=== PATIENT | male | born 1970 | race African-American/Black ===

== ENCOUNTER 2020-06-25 12:22 | Inpatient (IN) | payer OTHER ==
[2020-06-25 14:53] VITALS: BMI 30.3
[2020-06-25] MEDS ORDERED: MAGNESIUM CITRATE 300 ML BOTTLE PO PRN (16:27)
[2020-06-25] MEDS ORDERED: NICOTINE POLACRILEX 4 MG GUM BUC PRN (16:27)
[2020-06-25] MEDS ORDERED: BISMUTH SUBSALICYLATE 524 MG/30 ML UD PO PRN (16:27)
[2020-06-25] MEDS ORDERED: chlordiazePOXIDE HCL 25 MG CAPSULE PO PRN (16:27)
[2020-06-25] MEDS ORDERED: hydrOXYzine PAMOATE 25 MG CAPSULE (FP) PO PRN (16:27)
[2020-06-25] MEDS ORDERED: ACETAMINOPHEN 325 MG TABLET (FP) PO PRN ×2 (16:27)
[2020-06-25] MEDS ORDERED: IBUPROFEN 400 MG TABLET (FP) PO PRN (16:27)
[2020-06-25] MEDS ORDERED: MAG HYDROX/AL HYDROX/SIMETH 30 ML UNIT-DOSE CUP PO PRN (16:27)
[2020-06-25] MEDS ORDERED: ONDANSETRON *ODT* 4 MG TABLET SL PRN (16:27)
[2020-06-25] MEDS ORDERED: MAGNESIUM HYDROX 2400MG/30ML ORAL SUSPENSION 30 ML CUP PO PRN (16:27)
[2020-06-25] MEDS ORDERED: METHOCARBAMOL 500 MG TABLET PO PRN (16:27)
[2020-06-25] MEDS ORDERED: MENTHOL/PHENOL 1 EACH UD MM PRN (16:27)
[2020-06-25] MEDS ORDERED: HYDROCORTISONE 0.5% TOPICAL CREAM 30 GM TUBE TP PRN (16:30)
[2020-06-25] MEDS ORDERED: ALBUTEROL SO4 HFA INHALER IH PRN (16:36)
[2020-06-25] MEDS: THIAMINE HCL 100 MG TABLET (FP) PO SCH (22:39)
[2020-06-25] MEDS: chlordiazePOXIDE HCL 25 MG CAPSULE PO SCH (22:40)
[2020-06-25] MEDS: MELATONIN 5 MG TABLETS PO SCH (22:40)
[2020-06-26] MEDS: chlordiazePOXIDE HCL 25 MG CAPSULE PO SCH ×2 (06:06→10:54)
[2020-06-26] MEDS: ALBUTEROL SO4 HFA INHALER IH PRN ×2 (06:40→10:57)
[2020-06-26] MEDS ORDERED: ALBUTEROL SO4 HFA INHALER IH PRN (09:16)
[2020-06-26] MEDS: NICOTINE 21 MG/24 HOURS TOPICAL PATCH TD SCH (10:53)
[2020-06-26] MEDS: PRENATAL VITAMINS W/ FOLIC ACID TABLET (FP) PO SCH (10:53)
[2020-06-26 11:51] LABS: HEMATOCRIT 40.2 % (35.4-49); HEMOGLOBIN 13.7 GM/dL (11.7-16.9); MCH 28.8 pg (25.7-33.7); MEAN CELL VOLUME 84.7 fl (80-96); MEAN PLT VOLUME 8.7 fl (7.5-11.1); PLATELET COUNT 261 K/MM3 (134-434); RBC 4.75 M/mm3 (4.00-5.60); RDW 15.6 % (11.9-15.9); WHITE BLOOD COUNT 4.9 K/mm3 (4.0-10.0)
[2020-06-26 11:55] LABS: ALBUMIN 3.7 g/dl (3.4-5.0); BLOOD UREA NITROGEN 13.7 mg/dL (7-18)
[2020-06-26 11:56] LABS: BILIRUBIN,TOTAL 0.4 mg/dL (0.2-1); TOT PROT 6.7 g/dl (6.4-8.2)
[2020-06-26 11:58] LABS: CREATININE 0.9 mg/dL (0.55-1.3)
[2020-06-26 11:59] LABS: CALCIUM 8.5 mg/dL (8.5-10.1)
[2020-06-26] MEDS ORDERED: POTASSIUM CHLORIDE ORAL LIQUID 20 MEQ/15 ML PO ONE (14:43)
[2020-06-26] MEDS ORDERED: LORazepam 1 MG TABLET PO PRN (14:45)
[2020-06-26] MEDS ORDERED: LORazepam 1 MG TABLET PO ONE (15:26)
[2020-06-26] MEDS: amLODIPine BESYLATE 10 MG TABLET (FP) PO SCH (15:34)
[2020-06-26] MEDS: LORazepam 2 MG TABLET PO SCH ×2 (18:08→22:25)
[2020-06-26] MEDS: MELATONIN 5 MG TABLETS PO SCH (22:26)
[2020-06-26] MEDS: THIAMINE HCL 100 MG TABLET (FP) PO SCH (22:27)
[2020-06-27] MEDS ORDERED: chlordiazePOXIDE HCL 25 MG CAPSULE PO SCH (05:00)
[2020-06-27] MEDS: LORazepam 2 MG TABLET PO SCH ×4 (05:32→22:39)
[2020-06-27] MEDS: ALBUTEROL SO4 HFA INHALER IH PRN ×2 (05:36→22:42)
[2020-06-27] MEDS: NICOTINE 21 MG/24 HOURS TOPICAL PATCH TD SCH (11:15)
[2020-06-27] MEDS: PRENATAL VITAMINS W/ FOLIC ACID TABLET (FP) PO SCH (11:15)
[2020-06-27] MEDS: amLODIPine BESYLATE 10 MG TABLET (FP) PO SCH (11:16)
[2020-06-27] MEDS: MELATONIN 5 MG TABLETS PO SCH (22:39)
[2020-06-27] MEDS: THIAMINE HCL 100 MG TABLET (FP) PO SCH (22:40)
[2020-06-27] MEDS: POTASSIUM CHLORIDE ORAL LIQUID 20 MEQ/15 ML PO SCH ×2 (22:40→22:41)
[2020-06-28] MEDS ORDERED: chlordiazePOXIDE HCL 10 MG CAPSULE PO PRN
[2020-06-28] MEDS ORDERED: chlordiazePOXIDE HCL 10 MG CAPSULE PO SCH (05:00)
[2020-06-28] MEDS: LORazepam 1 MG TABLET PO SCH ×4 (05:40→22:24)
[2020-06-28] MEDS: amLODIPine BESYLATE 10 MG TABLET (FP) PO SCH (10:44)
[2020-06-28] MEDS: NICOTINE 21 MG/24 HOURS TOPICAL PATCH TD SCH (10:44)
[2020-06-28] MEDS: POTASSIUM CHLORIDE ORAL LIQUID 20 MEQ/15 ML PO SCH ×2 (10:44→22:24)
[2020-06-28] MEDS: PRENATAL VITAMINS W/ FOLIC ACID TABLET (FP) PO SCH (10:45)
[2020-06-28] MEDS: THIAMINE HCL 100 MG TABLET (FP) PO SCH (22:24)
[2020-06-28] MEDS: MELATONIN 5 MG TABLETS PO SCH (22:25)
[2020-06-29] MEDS ORDERED: LORazepam 0.5 MG TABLET PO PRN
[2020-06-29] MEDS ORDERED: chlordiazePOXIDE HCL 10 MG CAPSULE PO SCH (05:00)
[2020-06-29] MEDS: LORazepam 0.5 MG TABLET PO SCH ×4 (05:36→22:21)
[2020-06-29] MEDS: NICOTINE 21 MG/24 HOURS TOPICAL PATCH TD SCH (10:50)
[2020-06-29] MEDS: amLODIPine BESYLATE 10 MG TABLET (FP) PO SCH (10:51)
[2020-06-29] MEDS: PRENATAL VITAMINS W/ FOLIC ACID TABLET (FP) PO SCH (10:51)
[2020-06-29] MEDS: THIAMINE HCL 100 MG TABLET (FP) PO SCH (22:21)
[2020-06-29] MEDS: MELATONIN 5 MG TABLETS PO SCH (22:22)
[2020-06-29] MEDS: ALBUTEROL SO4 HFA INHALER IH PRN (22:23)
[2020-06-30] MEDS ORDERED: LORazepam 0.5 MG TABLET PO ONE (05:00)
[2020-06-30] MEDS ORDERED: chlordiazePOXIDE HCL 10 MG CAPSULE PO ONE (05:00)
[2020-06-30 06:05] LABS: SARS-CoV-2 NAA Not Detected (Not Detected)
[2020-06-30] MEDS: PRENATAL VITAMINS W/ FOLIC ACID TABLET (FP) PO SCH (09:38)
[2020-06-30] MEDS: NICOTINE 21 MG/24 HOURS TOPICAL PATCH TD SCH (09:38)
[2020-06-30] MEDS: amLODIPine BESYLATE 10 MG TABLET (FP) PO SCH (09:38)
[2020-06-30 10:02] VITALS: BP 136/77; PULSE 101; TEMP 97.1
== END 2020-06-30 12:32 | disposition home or self-care (01) | DRG 774 ==
LOC: YASAS 12:22 → Y6N 17:04
PROVIDERS: ADMIT Allergy & Immunology; ATTEND Allergy & Immunology
PROC: HZ2ZZZZ Detoxification Services for Substance Abuse Treatment (ICD-10-PCS; principal; 2020-06-25)
DX: F10.230 Alcohol dependence with withdrawal, uncomplicated (principal); F14.20 Cocaine dependence, uncomplicated; F12.10 Cannabis abuse, uncomplicated; F17.210 Nicotine dependence, cigarettes, uncomplicated; E87.6 Hypokalemia; I10 Essential (primary) hypertension; J45.909 Unspecified asthma, uncomplicated; L30.9 Dermatitis, unspecified
CPT/HCPCS: 36415; 80053; 82947; 82962; 83036; 85027; 86780; 93005; 93010; C9803; Q0162; U0003; U0005

== ENCOUNTER 2020-06-30 12:42 | Inpatient (IN) | payer OTHER ==
[2020-06-30] MEDS ORDERED: MENTHOL/PHENOL 1 EACH UD MM PRN (14:36)
[2020-06-30] MEDS ORDERED: LOPERAMIDE HCL 2 MG CAPSULE PO PRN (14:36)
[2020-06-30] MEDS ORDERED: guaiFENesin 200 MG/10 ML 10 ML UNIT-DOSE CUPS PO PRN (14:36)
[2020-06-30] MEDS ORDERED: MAGNESIUM HYDROX 2400MG/30ML ORAL SUSPENSION 30 ML CUP PO PRN (14:36)
[2020-06-30] MEDS ORDERED: MAGNESIUM CITRATE 300 ML BOTTLE PO PRN (14:36)
[2020-06-30] MEDS ORDERED: IBUPROFEN 400 MG TABLET (FP) PO PRN (14:36)
[2020-06-30] MEDS ORDERED: P-EPHED 60MG/TRIPROLIDI 2.5MG TABLET PO PRN (14:36)
[2020-06-30] MEDS ORDERED: ACETAMINOPHEN 325 MG TABLET (FP) PO PRN (14:36)
[2020-06-30] MEDS ORDERED: NICOTINE POLACRILEX 2 MG GUM BUC PRN (14:36)
[2020-06-30] MEDS ORDERED: ALBUTEROL SO4 HFA INHALER IH PRN (14:39)
[2020-06-30] MEDS: hydrOXYzine PAMOATE 25 MG CAPSULE (FP) PO PRN (21:11)
[2020-06-30] MEDS: MELATONIN 5 MG TABLETS PO SCH (21:11)
[2020-06-30] MEDS: THIAMINE HCL 100 MG TABLET (FP) PO SCH (21:11)
[2020-07-01] MEDS: ALBUTEROL SO4 HFA INHALER IH PRN (09:14)
[2020-07-01] MEDS: PRENATAL VITAMINS W/ FOLIC ACID TABLET (FP) PO SCH (09:42)
[2020-07-01] MEDS: amLODIPine BESYLATE 10 MG TABLET (FP) PO SCH (09:43)
[2020-07-01] MEDS: NICOTINE 7 MG/24 HOURS TOPICAL PATCH TD SCH (09:43)
[2020-07-01] MEDS ORDERED: NICOTINE 14 MG/24 HOURS TOPICAL PATCH TD SCH (10:00)
[2020-07-01] MEDS: THIAMINE HCL 100 MG TABLET (FP) PO SCH (21:53)
[2020-07-01] MEDS: hydrOXYzine PAMOATE 25 MG CAPSULE (FP) PO PRN (21:53)
[2020-07-01] MEDS: MELATONIN 5 MG TABLETS PO SCH (21:53)
[2020-07-02] MEDS: NICOTINE 7 MG/24 HOURS TOPICAL PATCH TD SCH (09:35)
[2020-07-02] MEDS: amLODIPine BESYLATE 10 MG TABLET (FP) PO SCH (09:36)
[2020-07-02] MEDS: PRENATAL VITAMINS W/ FOLIC ACID TABLET (FP) PO SCH (09:36)
[2020-07-02] MEDS: COLLOIDAL OATMEAL 1 BAR EACH TP PRN (11:04)
[2020-07-02] MEDS: HYDROCORTISONE 1% TOPICAL CREAM 30 GM TUBE TP PRN (11:05)
[2020-07-02] MEDS: hydrOXYzine PAMOATE 25 MG CAPSULE (FP) PO PRN (21:08)
[2020-07-02] MEDS: THIAMINE HCL 100 MG TABLET (FP) PO SCH (21:08)
[2020-07-02] MEDS: MELATONIN 5 MG TABLETS PO SCH (21:08)
[2020-07-03] MEDS: ALBUTEROL SO4 HFA INHALER IH PRN (09:05)
[2020-07-03] MEDS: PRENATAL VITAMINS W/ FOLIC ACID TABLET (FP) PO SCH (09:44)
[2020-07-03] MEDS: amLODIPine BESYLATE 10 MG TABLET (FP) PO SCH (09:44)
[2020-07-03] MEDS: NICOTINE 7 MG/24 HOURS TOPICAL PATCH TD SCH (09:44)
[2020-07-03] MEDS: MELATONIN 5 MG TABLETS PO SCH (21:05)
[2020-07-03] MEDS: THIAMINE HCL 100 MG TABLET (FP) PO SCH (21:05)
[2020-07-03] MEDS: hydrOXYzine PAMOATE 25 MG CAPSULE (FP) PO PRN (21:06)
[2020-07-04 06:07] LABS: SARS-CoV-2 NAA Not Detected (Not Detected)
[2020-07-04] MEDS: PRENATAL VITAMINS W/ FOLIC ACID TABLET (FP) PO SCH (09:32)
[2020-07-04] MEDS: NICOTINE 7 MG/24 HOURS TOPICAL PATCH TD SCH (09:32)
[2020-07-04] MEDS: hydrOXYzine PAMOATE 25 MG CAPSULE (FP) PO PRN (09:33)
[2020-07-04] MEDS: amLODIPine BESYLATE 10 MG TABLET (FP) PO SCH (09:33)
[2020-07-04] MEDS: NICOTINE 14 MG/24 HOURS TOPICAL PATCH TD SCH (11:54)
[2020-07-04] MEDS: THIAMINE HCL 100 MG TABLET (FP) PO SCH (21:58)
[2020-07-04] MEDS: MELATONIN 5 MG TABLETS PO SCH (21:58)
[2020-07-05] MEDS: PRENATAL VITAMINS W/ FOLIC ACID TABLET (FP) PO SCH (09:34)
[2020-07-05] MEDS: amLODIPine BESYLATE 10 MG TABLET (FP) PO SCH (09:34)
[2020-07-05] MEDS: NICOTINE 14 MG/24 HOURS TOPICAL PATCH TD SCH (09:34)
[2020-07-05] MEDS: hydrOXYzine PAMOATE 25 MG CAPSULE (FP) PO PRN ×2 (09:34→21:04)
[2020-07-05] MEDS: MAG HYDROX/AL HYDROX/SIMETH 30 ML UNIT-DOSE CUP PO PRN (20:15)
[2020-07-05] MEDS: ALBUTEROL SO4 HFA INHALER IH PRN (21:03)
[2020-07-05] MEDS: MELATONIN 5 MG TABLETS PO SCH (21:04)
[2020-07-05] MEDS: THIAMINE HCL 100 MG TABLET (FP) PO SCH (21:04)
[2020-07-06] MEDS: PRENATAL VITAMINS W/ FOLIC ACID TABLET (FP) PO SCH (10:11)
[2020-07-06] MEDS: hydrOXYzine PAMOATE 25 MG CAPSULE (FP) PO PRN ×2 (10:11→21:54)
[2020-07-06] MEDS: amLODIPine BESYLATE 10 MG TABLET (FP) PO SCH (10:11)
[2020-07-06] MEDS: NICOTINE 14 MG/24 HOURS TOPICAL PATCH TD SCH (10:12)
[2020-07-06] MEDS: HYDROCORTISONE 1% TOPICAL CREAM 30 GM TUBE TP PRN (14:35)
[2020-07-06] MEDS: MELATONIN 5 MG TABLETS PO SCH (21:54)
[2020-07-06] MEDS: THIAMINE HCL 100 MG TABLET (FP) PO SCH (21:54)
[2020-07-07] MEDS: amLODIPine BESYLATE 10 MG TABLET (FP) PO SCH (09:31)
[2020-07-07] MEDS: NICOTINE 14 MG/24 HOURS TOPICAL PATCH TD SCH (09:31)
[2020-07-07] MEDS: PRENATAL VITAMINS W/ FOLIC ACID TABLET (FP) PO SCH (09:31)
[2020-07-07] MEDS ORDERED: PT OWN MED DRAWER 7, Y5N ONE (19:01)
[2020-07-07] MEDS: ALBUTEROL SO4 HFA INHALER IH PRN (19:02)
[2020-07-07] MEDS: hydrOXYzine PAMOATE 25 MG CAPSULE (FP) PO PRN (21:04)
[2020-07-07] MEDS: THIAMINE HCL 100 MG TABLET (FP) PO SCH (21:04)
[2020-07-07] MEDS: MELATONIN 5 MG TABLETS PO SCH (21:04)
[2020-07-08] MEDS: NICOTINE 14 MG/24 HOURS TOPICAL PATCH TD SCH (09:31)
[2020-07-08] MEDS: PRENATAL VITAMINS W/ FOLIC ACID TABLET (FP) PO SCH (09:31)
[2020-07-08] MEDS: amLODIPine BESYLATE 10 MG TABLET (FP) PO SCH (09:31)
[2020-07-08] MEDS: THIAMINE HCL 100 MG TABLET (FP) PO SCH (22:00)
[2020-07-08] MEDS: MELATONIN 5 MG TABLETS PO SCH (22:00)
[2020-07-08] MEDS: hydrOXYzine PAMOATE 25 MG CAPSULE (FP) PO PRN (22:02)
[2020-07-09] MEDS: ALBUTEROL SO4 HFA INHALER IH PRN (08:34)
[2020-07-09] MEDS: MAG HYDROX/AL HYDROX/SIMETH 30 ML UNIT-DOSE CUP PO PRN (09:15)
[2020-07-09] MEDS ORDERED: COVID-19 VAC,AD26(JANSSEN)/PF 0.5 ML IM ONE (10:00)
[2020-07-09] MEDS: amLODIPine BESYLATE 10 MG TABLET (FP) PO SCH (10:12)
[2020-07-09] MEDS: NICOTINE 14 MG/24 HOURS TOPICAL PATCH TD SCH (10:12)
[2020-07-09] MEDS: PRENATAL VITAMINS W/ FOLIC ACID TABLET (FP) PO SCH (10:12)
[2020-07-09] MEDS: PANTOPRAZOLE 40 MG TABLET PO SCH (12:05)
[2020-07-09] MEDS: THIAMINE HCL 100 MG TABLET (FP) PO SCH (21:04)
[2020-07-09] MEDS: MELATONIN 5 MG TABLETS PO SCH (21:04)
[2020-07-09] MEDS: hydrOXYzine PAMOATE 25 MG CAPSULE (FP) PO PRN (21:05)
[2020-07-10] MEDS: ALBUTEROL SO4 HFA INHALER IH PRN ×2 (07:45→19:31)
[2020-07-10] MEDS ORDERED: PT OWN MED DRAWER 7, Y5N ONE (07:45)
[2020-07-10] MEDS: PRENATAL VITAMINS W/ FOLIC ACID TABLET (FP) PO SCH (09:28)
[2020-07-10] MEDS: NICOTINE 14 MG/24 HOURS TOPICAL PATCH TD SCH (09:29)
[2020-07-10] MEDS: amLODIPine BESYLATE 10 MG TABLET (FP) PO SCH (09:29)
[2020-07-10] MEDS: PANTOPRAZOLE 40 MG TABLET PO SCH (09:29)
[2020-07-10] MEDS: THIAMINE HCL 100 MG TABLET (FP) PO SCH (22:09)
[2020-07-10] MEDS: hydrOXYzine PAMOATE 25 MG CAPSULE (FP) PO PRN (22:09)
[2020-07-10] MEDS: MELATONIN 5 MG TABLETS PO SCH (22:09)
[2020-07-11] MEDS: NICOTINE 14 MG/24 HOURS TOPICAL PATCH TD SCH (09:29)
[2020-07-11] MEDS: PRENATAL VITAMINS W/ FOLIC ACID TABLET (FP) PO SCH (09:29)
[2020-07-11] MEDS: amLODIPine BESYLATE 10 MG TABLET (FP) PO SCH (09:30)
[2020-07-11] MEDS: PANTOPRAZOLE 40 MG TABLET PO SCH (09:30)
[2020-07-11] MEDS: MELATONIN 5 MG TABLETS PO SCH (21:06)
[2020-07-11] MEDS: THIAMINE HCL 100 MG TABLET (FP) PO SCH (21:06)
[2020-07-11] MEDS: hydrOXYzine PAMOATE 25 MG CAPSULE (FP) PO PRN (21:06)
[2020-07-12] MEDS: PRENATAL VITAMINS W/ FOLIC ACID TABLET (FP) PO SCH (09:30)
[2020-07-12] MEDS: hydrOXYzine PAMOATE 25 MG CAPSULE (FP) PO PRN ×2 (09:30→21:58)
[2020-07-12] MEDS: PANTOPRAZOLE 40 MG TABLET PO SCH (09:30)
[2020-07-12] MEDS: amLODIPine BESYLATE 10 MG TABLET (FP) PO SCH (09:30)
[2020-07-12] MEDS: NICOTINE 14 MG/24 HOURS TOPICAL PATCH TD SCH (09:31)
[2020-07-12] MEDS: HYDROCORTISONE 1% TOPICAL CREAM 30 GM TUBE TP PRN (11:45)
[2020-07-12] MEDS: THIAMINE HCL 100 MG TABLET (FP) PO SCH (21:58)
[2020-07-12] MEDS: MELATONIN 5 MG TABLETS PO SCH (21:58)
[2020-07-13] MEDS: amLODIPine BESYLATE 10 MG TABLET (FP) PO SCH (09:26)
[2020-07-13] MEDS: PRENATAL VITAMINS W/ FOLIC ACID TABLET (FP) PO SCH (09:26)
[2020-07-13] MEDS: PANTOPRAZOLE 40 MG TABLET PO SCH (09:26)
[2020-07-13] MEDS: NICOTINE 14 MG/24 HOURS TOPICAL PATCH TD SCH (09:27)
[2020-07-13] MEDS: hydrOXYzine PAMOATE 25 MG CAPSULE (FP) PO PRN ×2 (17:23→22:35)
[2020-07-13] MEDS: THIAMINE HCL 100 MG TABLET (FP) PO SCH (21:04)
[2020-07-13] MEDS: MELATONIN 5 MG TABLETS PO SCH (21:04)
[2020-07-14] MEDS: PRENATAL VITAMINS W/ FOLIC ACID TABLET (FP) PO SCH (09:55)
[2020-07-14] MEDS: amLODIPine BESYLATE 10 MG TABLET (FP) PO SCH (09:55)
[2020-07-14] MEDS: PANTOPRAZOLE 40 MG TABLET PO SCH (09:55)
[2020-07-14] MEDS: NICOTINE 14 MG/24 HOURS TOPICAL PATCH TD SCH (09:56)
[2020-07-14] MEDS: hydrOXYzine PAMOATE 25 MG CAPSULE (FP) PO PRN ×2 (09:57→21:54)
[2020-07-14] MEDS: THIAMINE HCL 100 MG TABLET (FP) PO SCH (21:54)
[2020-07-14] MEDS: MELATONIN 5 MG TABLETS PO SCH (21:54)
[2020-07-15] MEDS: PRENATAL VITAMINS W/ FOLIC ACID TABLET (FP) PO SCH (09:27)
[2020-07-15] MEDS: NICOTINE 14 MG/24 HOURS TOPICAL PATCH TD SCH (09:28)
[2020-07-15] MEDS: PANTOPRAZOLE 40 MG TABLET PO SCH (09:28)
[2020-07-15] MEDS ORDERED: LISINOPRIL 20 MG TABLET PO ONE (11:45)
[2020-07-15] MEDS: hydrOXYzine PAMOATE 25 MG CAPSULE (FP) PO PRN (21:11)
[2020-07-15] MEDS: MELATONIN 5 MG TABLETS PO SCH (21:11)
[2020-07-15] MEDS: THIAMINE HCL 100 MG TABLET (FP) PO SCH (21:11)
[2020-07-16] MEDS: PRENATAL VITAMINS W/ FOLIC ACID TABLET (FP) PO SCH (09:34)
[2020-07-16] MEDS: NICOTINE 14 MG/24 HOURS TOPICAL PATCH TD SCH (09:35)
[2020-07-16] MEDS: PANTOPRAZOLE 40 MG TABLET PO SCH (09:35)
[2020-07-16] MEDS: THIAMINE HCL 100 MG TABLET (FP) PO SCH (21:52)
[2020-07-16] MEDS: hydrOXYzine PAMOATE 25 MG CAPSULE (FP) PO PRN (21:52)
[2020-07-16] MEDS: MELATONIN 5 MG TABLETS PO SCH (21:53)
[2020-07-17] MEDS ORDERED: PT OWN MED DRAWER 7, Y5N ONE (08:47)
[2020-07-17] MEDS: HYDROCHLOROTHIAZIDE 12.5 MG CAPSULE (FP) PO SCH (09:32)
[2020-07-17] MEDS: PANTOPRAZOLE 40 MG TABLET PO SCH (09:32)
[2020-07-17] MEDS: NICOTINE 14 MG/24 HOURS TOPICAL PATCH TD SCH (09:32)
[2020-07-17] MEDS: PRENATAL VITAMINS W/ FOLIC ACID TABLET (FP) PO SCH (09:32)
[2020-07-17] MEDS: ERGOCALCIFEROL (VIT D2) 50,000 UNIT (1.25 MG) CAPSULE PO SCH (10:03)
[2020-07-17] MEDS: LISINOPRIL 10 MG TABLET PO SCH (13:44)
[2020-07-17] MEDS: hydrOXYzine PAMOATE 25 MG CAPSULE (FP) PO PRN (21:37)
[2020-07-17] MEDS: MELATONIN 5 MG TABLETS PO SCH (21:37)
[2020-07-17] MEDS: THIAMINE HCL 100 MG TABLET (FP) PO SCH (21:37)
[2020-07-17] MEDS: ATORVASTATIN CA 40 MG TABLET (FP) PO SCH (21:39)
[2020-07-18] MEDS ORDERED: PT OWN MED DRAWER 7, Y5N ONE (08:14)
[2020-07-18] MEDS: PANTOPRAZOLE 40 MG TABLET PO SCH (09:26)
[2020-07-18] MEDS: PRENATAL VITAMINS W/ FOLIC ACID TABLET (FP) PO SCH (09:26)
[2020-07-18] MEDS: HYDROCHLOROTHIAZIDE 12.5 MG CAPSULE (FP) PO SCH (09:27)
[2020-07-18] MEDS: LISINOPRIL 10 MG TABLET PO SCH (09:27)
[2020-07-18] MEDS: NICOTINE 14 MG/24 HOURS TOPICAL PATCH TD SCH (09:27)
[2020-07-18] MEDS: COLLOIDAL OATMEAL 1 BAR EACH TP PRN (09:29)
[2020-07-18] MEDS: THIAMINE HCL 100 MG TABLET (FP) PO SCH (21:04)
[2020-07-18] MEDS: hydrOXYzine PAMOATE 25 MG CAPSULE (FP) PO PRN (21:04)
[2020-07-18] MEDS: MELATONIN 5 MG TABLETS PO SCH (21:04)
[2020-07-18] MEDS: ATORVASTATIN CA 40 MG TABLET (FP) PO SCH (21:04)
[2020-07-19] MEDS ORDERED: PT OWN MED DRAWER 7, Y5N ONE ×2 (08:28→16:40)
[2020-07-19] MEDS: PRENATAL VITAMINS W/ FOLIC ACID TABLET (FP) PO SCH (09:35)
[2020-07-19] MEDS: PANTOPRAZOLE 40 MG TABLET PO SCH (09:35)
[2020-07-19] MEDS: LISINOPRIL 10 MG TABLET PO SCH (09:35)
[2020-07-19] MEDS: NICOTINE 14 MG/24 HOURS TOPICAL PATCH TD SCH (09:36)
[2020-07-19] MEDS: HYDROCHLOROTHIAZIDE 12.5 MG CAPSULE (FP) PO SCH (11:07)
[2020-07-19] MEDS: ALBUTEROL SO4 HFA INHALER IH PRN (18:33)
[2020-07-19] MEDS: ATORVASTATIN CA 40 MG TABLET (FP) PO SCH (21:48)
[2020-07-19] MEDS: THIAMINE HCL 100 MG TABLET (FP) PO SCH (21:48)
[2020-07-19] MEDS: hydrOXYzine PAMOATE 25 MG CAPSULE (FP) PO PRN (21:49)
[2020-07-19] MEDS: MELATONIN 5 MG TABLETS PO SCH (21:49)
[2020-07-20] MEDS ORDERED: PT OWN MED DRAWER 7, Y5N ONE (07:29)
[2020-07-20] MEDS: LISINOPRIL 10 MG TABLET PO SCH (09:39)
[2020-07-20] MEDS: NICOTINE 14 MG/24 HOURS TOPICAL PATCH TD SCH (09:39)
[2020-07-20] MEDS: PRENATAL VITAMINS W/ FOLIC ACID TABLET (FP) PO SCH (09:39)
[2020-07-20] MEDS: PANTOPRAZOLE 40 MG TABLET PO SCH (09:39)
[2020-07-20] MEDS: HYDROCHLOROTHIAZIDE 12.5 MG CAPSULE (FP) PO SCH (09:39)
[2020-07-20] MEDS: MELATONIN 5 MG TABLETS PO SCH (21:10)
[2020-07-20] MEDS: THIAMINE HCL 100 MG TABLET (FP) PO SCH (21:10)
[2020-07-20] MEDS: hydrOXYzine PAMOATE 25 MG CAPSULE (FP) PO PRN (21:10)
[2020-07-20] MEDS: ATORVASTATIN CA 40 MG TABLET (FP) PO SCH (21:10)
[2020-07-20] MEDS: ALBUTEROL SO4 HFA INHALER IH PRN (23:06)
[2020-07-21] MEDS: PANTOPRAZOLE 40 MG TABLET PO SCH (09:35)
[2020-07-21] MEDS: PRENATAL VITAMINS W/ FOLIC ACID TABLET (FP) PO SCH (09:35)
[2020-07-21] MEDS: HYDROCHLOROTHIAZIDE 12.5 MG CAPSULE (FP) PO SCH (09:36)
[2020-07-21] MEDS: NICOTINE 14 MG/24 HOURS TOPICAL PATCH TD SCH (09:36)
[2020-07-21] MEDS: LISINOPRIL 10 MG TABLET PO SCH (09:36)
[2020-07-21] MEDS: ALBUTEROL SO4 HFA INHALER IH PRN (18:47)
[2020-07-21] MEDS: ATORVASTATIN CA 40 MG TABLET (FP) PO SCH (21:27)
[2020-07-21] MEDS: MELATONIN 5 MG TABLETS PO SCH (21:27)
[2020-07-21] MEDS: THIAMINE HCL 100 MG TABLET (FP) PO SCH (21:27)
[2020-07-21] MEDS: hydrOXYzine PAMOATE 25 MG CAPSULE (FP) PO PRN (21:27)
[2020-07-21] MEDS ORDERED: PT OWN MED DRAWER 7, Y5N ONE (21:32)
[2020-07-21] MEDS: HYDROCORTISONE 1% TOPICAL CREAM 30 GM TUBE TP PRN (21:32)
[2020-07-22] MEDS: PRENATAL VITAMINS W/ FOLIC ACID TABLET (FP) PO SCH (09:38)
[2020-07-22] MEDS: LISINOPRIL 10 MG TABLET PO SCH (09:39)
[2020-07-22] MEDS: PANTOPRAZOLE 40 MG TABLET PO SCH (09:39)
[2020-07-22] MEDS: HYDROCHLOROTHIAZIDE 12.5 MG CAPSULE (FP) PO SCH (09:39)
[2020-07-22] MEDS: NICOTINE 14 MG/24 HOURS TOPICAL PATCH TD SCH (09:39)
[2020-07-22] MEDS: MELATONIN 5 MG TABLETS PO SCH (21:01)
[2020-07-22] MEDS: hydrOXYzine PAMOATE 25 MG CAPSULE (FP) PO PRN (21:01)
[2020-07-22] MEDS: THIAMINE HCL 100 MG TABLET (FP) PO SCH (21:01)
[2020-07-22] MEDS: ATORVASTATIN CA 40 MG TABLET (FP) PO SCH (21:01)
[2020-07-23] MEDS: ALBUTEROL SO4 HFA INHALER IH PRN (06:51)
[2020-07-23] MEDS: LISINOPRIL 10 MG TABLET PO SCH (09:27)
[2020-07-23] MEDS: PANTOPRAZOLE 40 MG TABLET PO SCH (09:27)
[2020-07-23] MEDS: HYDROCHLOROTHIAZIDE 12.5 MG CAPSULE (FP) PO SCH (09:27)
[2020-07-23] MEDS: NICOTINE 14 MG/24 HOURS TOPICAL PATCH TD SCH (09:28)
[2020-07-23] MEDS: PRENATAL VITAMINS W/ FOLIC ACID TABLET (FP) PO SCH (09:28)
[2020-07-23] MEDS: MELATONIN 5 MG TABLETS PO SCH (21:10)
[2020-07-23] MEDS: ATORVASTATIN CA 40 MG TABLET (FP) PO SCH (21:10)
[2020-07-23] MEDS: THIAMINE HCL 100 MG TABLET (FP) PO SCH (21:10)
[2020-07-23] MEDS: hydrOXYzine PAMOATE 25 MG CAPSULE (FP) PO PRN (21:10)
[2020-07-24] MEDS: ALBUTEROL SO4 HFA INHALER IH PRN (06:05)
[2020-07-24] MEDS ORDERED: PT OWN MED DRAWER 7, Y5N ONE ×2 (08:48→09:43)
[2020-07-24] MEDS: PANTOPRAZOLE 40 MG TABLET PO SCH (09:41)
[2020-07-24] MEDS: HYDROCHLOROTHIAZIDE 12.5 MG CAPSULE (FP) PO SCH (09:41)
[2020-07-24] MEDS: NICOTINE 14 MG/24 HOURS TOPICAL PATCH TD SCH (09:41)
[2020-07-24] MEDS: PRENATAL VITAMINS W/ FOLIC ACID TABLET (FP) PO SCH (09:41)
[2020-07-24] MEDS: LISINOPRIL 10 MG TABLET PO SCH (09:41)
[2020-07-24] MEDS: ERGOCALCIFEROL (VIT D2) 50,000 UNIT (1.25 MG) CAPSULE PO SCH (09:43)
[2020-07-24] MEDS: ATORVASTATIN CA 40 MG TABLET (FP) PO SCH (21:10)
[2020-07-24] MEDS: hydrOXYzine PAMOATE 25 MG CAPSULE (FP) PO PRN (21:10)
[2020-07-24] MEDS: THIAMINE HCL 100 MG TABLET (FP) PO SCH (21:10)
[2020-07-24] MEDS: MELATONIN 5 MG TABLETS PO SCH (21:11)
[2020-07-25] MEDS: PRENATAL VITAMINS W/ FOLIC ACID TABLET (FP) PO SCH (09:25)
[2020-07-25] MEDS: HYDROCHLOROTHIAZIDE 12.5 MG CAPSULE (FP) PO SCH (09:25)
[2020-07-25] MEDS: LISINOPRIL 10 MG TABLET PO SCH (09:27)
[2020-07-25] MEDS: NICOTINE 14 MG/24 HOURS TOPICAL PATCH TD SCH (09:28)
[2020-07-25] MEDS: PANTOPRAZOLE 40 MG TABLET PO SCH (09:28)
[2020-07-25] MEDS ORDERED: PT OWN MED DRAWER 7, Y5N ONE (17:49)
[2020-07-25] MEDS: ALBUTEROL SO4 HFA INHALER IH PRN (17:49)
[2020-07-25] MEDS: ATORVASTATIN CA 40 MG TABLET (FP) PO SCH (21:58)
[2020-07-25] MEDS: THIAMINE HCL 100 MG TABLET (FP) PO SCH (21:58)
[2020-07-25] MEDS: hydrOXYzine PAMOATE 25 MG CAPSULE (FP) PO PRN (21:58)
[2020-07-25] MEDS: MELATONIN 5 MG TABLETS PO SCH (21:58)
[2020-07-26] MEDS: LISINOPRIL 10 MG TABLET PO SCH (09:26)
[2020-07-26] MEDS: PRENATAL VITAMINS W/ FOLIC ACID TABLET (FP) PO SCH (09:26)
[2020-07-26] MEDS: PANTOPRAZOLE 40 MG TABLET PO SCH (09:26)
[2020-07-26] MEDS: NICOTINE 14 MG/24 HOURS TOPICAL PATCH TD SCH (09:26)
[2020-07-26] MEDS: HYDROCHLOROTHIAZIDE 12.5 MG CAPSULE (FP) PO SCH (09:26)
[2020-07-26] MEDS: ATORVASTATIN CA 40 MG TABLET (FP) PO SCH (21:01)
[2020-07-26] MEDS: MELATONIN 5 MG TABLETS PO SCH (21:01)
[2020-07-26] MEDS: THIAMINE HCL 100 MG TABLET (FP) PO SCH (21:01)
[2020-07-26] MEDS: hydrOXYzine PAMOATE 25 MG CAPSULE (FP) PO PRN (21:02)
[2020-07-27 06:43] VITALS: TEMP 97.1
[2020-07-27] MEDS: PANTOPRAZOLE 40 MG TABLET PO SCH (09:32)
[2020-07-27] MEDS: LISINOPRIL 10 MG TABLET PO SCH (09:32)
[2020-07-27] MEDS: HYDROCHLOROTHIAZIDE 12.5 MG CAPSULE (FP) PO SCH (09:32)
[2020-07-27] MEDS: PRENATAL VITAMINS W/ FOLIC ACID TABLET (FP) PO SCH (09:33)
[2020-07-27] MEDS: NICOTINE 14 MG/24 HOURS TOPICAL PATCH TD SCH (09:33)
[2020-07-27] MEDS ORDERED: PT OWN MED DRAWER 7, Y5N ONE ×2 (11:37→21:11)
[2020-07-27] MEDS: THIAMINE HCL 100 MG TABLET (FP) PO SCH (21:09)
[2020-07-27] MEDS: MELATONIN 5 MG TABLETS PO SCH (21:09)
[2020-07-27] MEDS: ATORVASTATIN CA 40 MG TABLET (FP) PO SCH (21:09)
[2020-07-27] MEDS: hydrOXYzine PAMOATE 25 MG CAPSULE (FP) PO PRN (21:10)
[2020-07-27] MEDS: ALBUTEROL SO4 HFA INHALER IH PRN (21:11)
[2020-07-28 06:24] VITALS: BP 138/81; PULSE 83
[2020-07-28] MEDS: PRENATAL VITAMINS W/ FOLIC ACID TABLET (FP) PO SCH (09:19)
[2020-07-28] MEDS: PANTOPRAZOLE 40 MG TABLET PO SCH (09:20)
[2020-07-28] MEDS: LISINOPRIL 10 MG TABLET PO SCH (09:20)
[2020-07-28] MEDS: NICOTINE 14 MG/24 HOURS TOPICAL PATCH TD SCH (09:20)
[2020-07-28] MEDS: HYDROCHLOROTHIAZIDE 12.5 MG CAPSULE (FP) PO SCH (09:21)
== END 2020-07-28 09:50 | disposition home or self-care (01) | DRG 772 ==
LOC: YASAS 12:42 → Y5N 12:43
PROVIDERS: ADMIT Allergy & Immunology; ATTEND Allergy & Immunology
PROC: HZ42ZZZ Group Counseling for Substance Abuse Treatment, Cognitive-Behavioral (ICD-10-PCS; principal; 2020-06-30)
DX: F10.20 Alcohol dependence, uncomplicated (principal); F14.10 Cocaine abuse, uncomplicated; F12.10 Cannabis abuse, uncomplicated; F17.210 Nicotine dependence, cigarettes, uncomplicated; E78.5 Hyperlipidemia, unspecified; E55.9 Vitamin D deficiency, unspecified; I10 Essential (primary) hypertension; J45.909 Unspecified asthma, uncomplicated; L30.9 Dermatitis, unspecified; N40.0 Benign prostatic hyperplasia without lower urinary tract symptoms
CPT/HCPCS: 73000-TC-LT-FY; 73000-TC-RT-FY; C9803; U0003; U0005

== ENCOUNTER 2022-03-10 12:46 | Inpatient (IN) | payer OTHER ==
[2022-03-10 13:12] VITALS: BMI 24.2
[2022-03-10] MEDS ORDERED: NICOTINE 10 MG CARTRIDGE (INHALER) IH PRN (15:46)
[2022-03-10] MEDS ORDERED: LOPERAMIDE HCL 2 MG CAPSULE PO PRN (15:46)
[2022-03-10] MEDS ORDERED: IBUPROFEN 400 MG TABLET (FP) PO PRN (15:46)
[2022-03-10] MEDS ORDERED: BENZOCAINE/MENTHOL (CHLORASEPTIC ) LOZENGE MM PRN (15:46)
[2022-03-10] MEDS ORDERED: ACETAMINOPHEN 325 MG TABLET (FP) PO PRN ×2 (15:46)
[2022-03-10] MEDS ORDERED: MAGNESIUM HYDROX 2400MG/30ML ORAL SUSPENSION 30 ML CUP PO PRN (15:46)
[2022-03-10] MEDS ORDERED: DICYCLOMINE HCL 10 MG CAPSULE PO PRN (15:46)
[2022-03-10] MEDS ORDERED: NALOXONE HCL (KLOXXADO) 8 MG SPRAY NS PRN (15:46)
[2022-03-10] MEDS ORDERED: POLYETHYLENE GLYCOL (HEALTHYLAX) 3350 17 GM PACKET PO PRN (15:46)
[2022-03-10] MEDS ORDERED: NICOTINE POLACRILEX 2 MG GUM BUC PRN (15:46)
[2022-03-10] MEDS ORDERED: IBUPROFEN 600 MG TABLET (FP) PO PRN (15:46)
[2022-03-10] MEDS ORDERED: MAG HYDROX/AL HYDROX/SIMETH 30 ML UNIT-DOSE CUP PO PRN (15:46)
[2022-03-10] MEDS ORDERED: LISINOPRIL 10 MG TABLET PO SCH (16:00)
[2022-03-10] MEDS ORDERED: PRENATAL VITAMINS W/ FOLIC ACID TABLET (FP) PO SCH (16:00)
[2022-03-10] MEDS ORDERED: TAMSULOSIN HCL 0.4 MG CAP PO SCH (16:00)
[2022-03-10] MEDS ORDERED: HYDROCHLOROTHIAZIDE 12.5 MG CAPSULE (FP) PO SCH (16:00)
[2022-03-10] MEDS: LISINOPRIL 10 MG TABLET PO SCH (17:49)
[2022-03-10] MEDS: PRENATAL VITAMINS W/ FOLIC ACID TABLET (FP) PO SCH (17:49)
[2022-03-10] MEDS: TAMSULOSIN HCL 0.4 MG CAP PO SCH (17:49)
[2022-03-10] MEDS: HYDROCHLOROTHIAZIDE 12.5 MG CAPSULE (FP) PO SCH (17:49)
[2022-03-10] MEDS: chlordiazePOXIDE HCL 25 MG CAPSULE PO SCH ×2 (17:50→22:43)
[2022-03-10] MEDS: predniSONE 20 MG TABLET (UD) PO SCH (18:45)
[2022-03-10] MEDS: ALBUTEROL SO4 HFA INHALER IH PRN (21:18)
[2022-03-10] MEDS ORDERED: MELATONIN 5 MG TABLETS PO SCH (22:00)
[2022-03-10] MEDS: THIAMINE HCL 100 MG TABLET (FP) PO SCH (22:43)
[2022-03-10] MEDS: ATORVASTATIN CA 40 MG TABLET (FP) PO SCH (22:45)
[2022-03-11] MEDS: chlordiazePOXIDE HCL 25 MG CAPSULE PO SCH ×4 (05:48→22:33)
[2022-03-11] MEDS: predniSONE 20 MG TABLET (UD) PO SCH (10:18)
[2022-03-11] MEDS: TAMSULOSIN HCL 0.4 MG CAP PO SCH (10:19)
[2022-03-11] MEDS: PRENATAL VITAMINS W/ FOLIC ACID TABLET (FP) PO SCH (10:19)
[2022-03-11] MEDS: LISINOPRIL 10 MG TABLET PO SCH (10:19)
[2022-03-11] MEDS: HYDROCHLOROTHIAZIDE 12.5 MG CAPSULE (FP) PO SCH (10:19)
[2022-03-11 12:17] LABS: HEMATOCRIT 41.4 % (35.4-49); HEMOGLOBIN 13.4 GM/dL (11.7-16.9); MCH 28.7 pg (25.7-33.7); MCHC 32.4 g/dl (32.0-35.9); MEAN CELL VOLUME 88.6 fl (80-96); MEAN PLT VOLUME 8.5 fl (7.5-11.1); PLATELET COUNT 305 10^3/uL (134-434); RBC 4.67 M/mm3 (4.00-5.60); WHITE BLOOD COUNT 6.4 K/mm3 (4.0-10.0)
[2022-03-11 12:51] LABS: ALBUMIN 3.4 g/dl (3.4-5.0)
[2022-03-11 12:53] LABS: CALCIUM 8.9 mg/dL (8.5-10.1)
[2022-03-11 12:54] LABS: BLOOD UREA NITROGEN 15.2 mg/dL (7-18); CREATININE 0.8 mg/dL (0.55-1.3)
[2022-03-11 12:55] LABS: BILIRUBIN,TOTAL 0.5 mg/dL (0.2-1)
[2022-03-11 12:56] LABS: TOT PROT 6.6 g/dl (6.4-8.2)
[2022-03-11] MEDS: TRIAMCINOLONE ACET 0.1% CREAM 15 GM TUBE TP SCH ×2 (13:14→22:34)
[2022-03-11] MEDS: ALBUTEROL SO4 HFA INHALER IH PRN ×2 (13:15→17:26)
[2022-03-11 13:35] LABS: HIV INTERPRETATION NEGATIVE (NEGATIVE)
[2022-03-11] MEDS: ONDANSETRON *ODT* 4 MG TABLET SL PRN (17:24)
[2022-03-11] MEDS: ATORVASTATIN CA 40 MG TABLET (FP) PO SCH (22:32)
[2022-03-11] MEDS: METHOCARBAMOL 500 MG TABLET PO PRN (22:32)
[2022-03-11] MEDS: THIAMINE HCL 100 MG TABLET (FP) PO SCH (22:32)
[2022-03-11] MEDS: SUVOREXANT 10 MG TABLET PO PRN (22:34)
[2022-03-12] MEDS: BISMUTH SUBSALICYLATE 524 MG/30 ML PO PRN (03:59)
[2022-03-12] MEDS: chlordiazePOXIDE HCL 25 MG CAPSULE PO SCH ×4 (05:17→22:02)
[2022-03-12] MEDS: TRIAMCINOLONE ACET 0.1% CREAM 15 GM TUBE TP SCH ×3 (05:18→22:04)
[2022-03-12] MEDS: predniSONE 20 MG TABLET (UD) PO SCH (10:40)
[2022-03-12] MEDS: PRENATAL VITAMINS W/ FOLIC ACID TABLET (FP) PO SCH (10:41)
[2022-03-12] MEDS: HYDROCHLOROTHIAZIDE 12.5 MG CAPSULE (FP) PO SCH (10:41)
[2022-03-12] MEDS: LISINOPRIL 10 MG TABLET PO SCH (10:41)
[2022-03-12] MEDS: TAMSULOSIN HCL 0.4 MG CAP PO SCH (10:44)
[2022-03-12] MEDS: CALAMINE 8% TOPICAL LOTION 177 ML BOTTLE TP PRN (13:25)
[2022-03-12] MEDS ORDERED: cloNIDine HCL 0.1 MG TABLET PO ONE (14:00)
[2022-03-12] MEDS: METHOCARBAMOL 500 MG TABLET PO PRN ×2 (14:01→22:03)
[2022-03-12] MEDS: THIAMINE HCL 100 MG TABLET (FP) PO SCH (22:02)
[2022-03-12] MEDS: ATORVASTATIN CA 40 MG TABLET (FP) PO SCH (22:02)
[2022-03-12] MEDS: ALBUTEROL SO4 HFA INHALER IH PRN (22:04)
[2022-03-12] MEDS: SUVOREXANT 10 MG TABLET PO PRN (22:33)
[2022-03-13] MEDS: chlordiazePOXIDE HCL 10 MG CAPSULE PO SCH ×4 (06:00→22:26)
[2022-03-13] MEDS: TRIAMCINOLONE ACET 0.1% CREAM 15 GM TUBE TP SCH ×3 (06:01→22:26)
[2022-03-13] MEDS: TAMSULOSIN HCL 0.4 MG CAP PO SCH (10:33)
[2022-03-13] MEDS: LISINOPRIL 10 MG TABLET PO SCH (10:33)
[2022-03-13] MEDS: HYDROCHLOROTHIAZIDE 12.5 MG CAPSULE (FP) PO SCH (10:33)
[2022-03-13] MEDS: predniSONE 20 MG TABLET (UD) PO SCH (10:33)
[2022-03-13] MEDS: PRENATAL VITAMINS W/ FOLIC ACID TABLET (FP) PO SCH (10:33)
[2022-03-13] MEDS ORDERED: COLLOIDAL OATMEAL 1 BAR EACH TP PRN (13:56)
[2022-03-13] MEDS: BISMUTH SUBSALICYLATE 524 MG/30 ML PO PRN (19:22)
[2022-03-13] MEDS: ATORVASTATIN CA 40 MG TABLET (FP) PO SCH (22:25)
[2022-03-13] MEDS: THIAMINE HCL 100 MG TABLET (FP) PO SCH (22:25)
[2022-03-13] MEDS: SUVOREXANT 10 MG TABLET PO PRN (22:29)
[2022-03-13] MEDS: CALAMINE 8% TOPICAL LOTION 177 ML BOTTLE TP PRN (22:31)
[2022-03-14] MEDS: chlordiazePOXIDE HCL 10 MG CAPSULE PO SCH ×2 (06:17→17:51)
[2022-03-14] MEDS: TRIAMCINOLONE ACET 0.1% CREAM 15 GM TUBE TP SCH ×3 (06:18→22:40)
[2022-03-14] MEDS: ONDANSETRON *ODT* 4 MG TABLET SL PRN (06:20)
[2022-03-14] MEDS: LISINOPRIL 10 MG TABLET PO SCH (10:37)
[2022-03-14] MEDS: TAMSULOSIN HCL 0.4 MG CAP PO SCH (10:37)
[2022-03-14] MEDS: HYDROCHLOROTHIAZIDE 12.5 MG CAPSULE (FP) PO SCH (10:37)
[2022-03-14] MEDS: PRENATAL VITAMINS W/ FOLIC ACID TABLET (FP) PO SCH (10:37)
[2022-03-14] MEDS: predniSONE 20 MG TABLET (UD) PO SCH (10:37)
[2022-03-14] MEDS: METHOCARBAMOL 500 MG TABLET PO PRN ×2 (10:39→17:52)
[2022-03-14] MEDS: ALBUTEROL SO4 HFA INHALER IH PRN (19:39)
[2022-03-14] MEDS ORDERED: SUVOREXANT 10 MG TABLET PO PRN (22:00)
[2022-03-14] MEDS: ATORVASTATIN CA 40 MG TABLET (FP) PO SCH (22:37)
[2022-03-14] MEDS: THIAMINE HCL 100 MG TABLET (FP) PO SCH (22:37)
[2022-03-14] MEDS: CALAMINE 8% TOPICAL LOTION 177 ML BOTTLE TP PRN (22:41)
[2022-03-15] MEDS: ONDANSETRON *ODT* 4 MG TABLET SL PRN (01:11)
[2022-03-15] MEDS ORDERED: chlordiazePOXIDE HCL 10 MG CAPSULE PO ONE (05:00)
[2022-03-15] MEDS: TRIAMCINOLONE ACET 0.1% CREAM 15 GM TUBE TP SCH (05:10)
[2022-03-15 09:47] VITALS: RESP 18
[2022-03-15] MEDS: PRENATAL VITAMINS W/ FOLIC ACID TABLET (FP) PO SCH (10:31)
[2022-03-15] MEDS: LISINOPRIL 10 MG TABLET PO SCH (10:32)
[2022-03-15] MEDS: TAMSULOSIN HCL 0.4 MG CAP PO SCH (10:32)
[2022-03-15] MEDS: HYDROCHLOROTHIAZIDE 12.5 MG CAPSULE (FP) PO SCH (10:32)
[2022-03-15 13:09] VITALS: BP 142/79; PULSE 103; TEMP 98
== END 2022-03-15 13:55 | disposition other institution (70) | DRG 774 ==
LOC: YASAS 12:46 → Y6N 16:17
PROVIDERS: ADMIT Allergy & Immunology; ATTEND Allergy & Immunology
PROC: HZ2ZZZZ Detoxification Services for Substance Abuse Treatment (ICD-10-PCS; principal; 2022-03-10)
DX: F10.230 Alcohol dependence with withdrawal, uncomplicated (principal); F14.20 Cocaine dependence, uncomplicated; F12.20 Cannabis dependence, uncomplicated; F17.210 Nicotine dependence, cigarettes, uncomplicated; F19.282 Other psychoactive substance dependence with psychoactive substance-induced sleep disorder; F31.9 Bipolar disorder, unspecified; F63.81 Intermittent explosive disorder; E78.1 Pure hyperglyceridemia; I10 Essential (primary) hypertension; J45.909 Unspecified asthma, uncomplicated; L30.9 Dermatitis, unspecified; L40.9 Psoriasis, unspecified; N40.0 Benign prostatic hyperplasia without lower urinary tract symptoms; R73.9 Hyperglycemia, unspecified; Z62.810 Personal history of physical and sexual abuse in childhood
CPT/HCPCS: 36415; 80053; 85027; 86780; 87389; C9803-CS; Q0162; U0003; U0005

== ENCOUNTER 2022-03-15 13:55 | Inpatient (IN) | payer OTHER ==
[~2022-03-15 13:55] MED LIST: ACETAMINOPHEN 325 MG TABLET (FP) PO PRN; BENZOCAINE/MENTHOL (CHLORASEPTIC ) LOZENGE MM PRN; LOPERAMIDE HCL 2 MG CAPSULE PO PRN; MAGNESIUM HYDROX 2400MG/30ML ORAL SUSPENSION 30 ML CUP PO PRN; NICOTINE 7 MG/24 HOURS TOPICAL PATCH TD PRN; NICOTINE POLACRILEX 2 MG GUM BUC PRN; POLYETHYLENE GLYCOL (HEALTHYLAX) 3350 17 GM PACKET PO PRN; guaiFENesin 200 MG/10 ML 10 ML UNIT-DOSE CUPS PO PRN
[2022-03-15] MEDS: MELATONIN 5 MG TABLETS PO SCH (21:28)
[2022-03-15] MEDS: hydrOXYzine PAMOATE 25 MG CAPSULE (FP) PO PRN (21:28)
[2022-03-15] MEDS: THIAMINE HCL 100 MG TABLET (FP) PO SCH (21:28)
[2022-03-15] MEDS: ATORVASTATIN CA 40 MG TABLET (FP) PO SCH (21:29)
[2022-03-16] MEDS: TAMSULOSIN HCL 0.4 MG CAP PO SCH (10:05)
[2022-03-16] MEDS: PRENATAL VITAMINS W/ FOLIC ACID TABLET (FP) PO SCH (10:08)
[2022-03-16] MEDS: HYDROCHLOROTHIAZIDE 12.5 MG CAPSULE (FP) PO SCH (10:08)
[2022-03-16] MEDS: LISINOPRIL 10 MG TABLET PO SCH (10:08)
[2022-03-16] MEDS: COLLOIDAL OATMEAL 1 BAR EACH TP PRN (10:08)
[2022-03-16] MEDS: TRIAMCINOLONE ACET 0.1% CREAM 15 GM TUBE TP SCH (10:09)
[2022-03-16] MEDS: CALAMINE 8% TOPICAL LOTION 177 ML BOTTLE TP SCH (10:50)
[2022-03-16] MEDS: MELATONIN 5 MG TABLETS PO SCH (21:48)
[2022-03-16] MEDS: ATORVASTATIN CA 40 MG TABLET (FP) PO SCH (21:48)
[2022-03-16] MEDS: hydrOXYzine PAMOATE 25 MG CAPSULE (FP) PO PRN (21:48)
[2022-03-16] MEDS: THIAMINE HCL 100 MG TABLET (FP) PO SCH (21:48)
[2022-03-17] MEDS: TAMSULOSIN HCL 0.4 MG CAP PO SCH (09:50)
[2022-03-17] MEDS: HYDROCHLOROTHIAZIDE 12.5 MG CAPSULE (FP) PO SCH (09:51)
[2022-03-17] MEDS: CALAMINE 8% TOPICAL LOTION 177 ML BOTTLE TP SCH (09:51)
[2022-03-17] MEDS: TRIAMCINOLONE ACET 0.1% CREAM 15 GM TUBE TP SCH (09:51)
[2022-03-17] MEDS: PRENATAL VITAMINS W/ FOLIC ACID TABLET (FP) PO SCH (09:52)
[2022-03-17] MEDS: LISINOPRIL 10 MG TABLET PO SCH (09:52)
[2022-03-17] MEDS ORDERED: CALAMINE 8% TOPICAL LOTION 177 ML BOTTLE TP PRN (10:06)
[2022-03-17] MEDS: AMOX TR/POT CLAV 875MG/125MG TABLETS (FP) PO SCH ×2 (12:03→19:13)
[2022-03-17] MEDS: TOLNAFTATE 1% CREAM 15 GM TUBE TP SCH ×2 (12:04→21:36)
[2022-03-17] MEDS: THIAMINE HCL 100 MG TABLET (FP) PO SCH (21:35)
[2022-03-17] MEDS: MELATONIN 5 MG TABLETS PO SCH (21:35)
[2022-03-17] MEDS: ATORVASTATIN CA 40 MG TABLET (FP) PO SCH (21:36)
[2022-03-17] MEDS: MINERAL OIL/PETROLAT/WATER TOPICAL CREAM 454 GM JAR TP PRN (21:37)
[2022-03-18] MEDS: AMOX TR/POT CLAV 875MG/125MG TABLETS (FP) PO SCH ×2 (06:59→16:45)
[2022-03-18] MEDS: HYDROCHLOROTHIAZIDE 12.5 MG CAPSULE (FP) PO SCH (09:42)
[2022-03-18] MEDS: TRIAMCINOLONE ACET 0.1% CREAM 15 GM TUBE TP SCH (09:42)
[2022-03-18] MEDS: TAMSULOSIN HCL 0.4 MG CAP PO SCH (09:42)
[2022-03-18] MEDS: PRENATAL VITAMINS W/ FOLIC ACID TABLET (FP) PO SCH (09:42)
[2022-03-18] MEDS: LISINOPRIL 10 MG TABLET PO SCH (09:43)
[2022-03-18] MEDS: TOLNAFTATE 1% CREAM 15 GM TUBE TP SCH ×2 (09:43→21:18)
[2022-03-18] MEDS: MELATONIN 5 MG TABLETS PO SCH (21:17)
[2022-03-18] MEDS: THIAMINE HCL 100 MG TABLET (FP) PO SCH (21:17)
[2022-03-18] MEDS: ATORVASTATIN CA 40 MG TABLET (FP) PO SCH (21:18)
[2022-03-18] MEDS: BACLOFEN 10 MG TABLET (FP) PO PRN (21:19)
[2022-03-19] MEDS: AMOX TR/POT CLAV 875MG/125MG TABLETS (FP) PO SCH ×2 (07:03→18:20)
[2022-03-19] MEDS: TAMSULOSIN HCL 0.4 MG CAP PO SCH (09:43)
[2022-03-19] MEDS: LISINOPRIL 10 MG TABLET PO SCH (09:43)
[2022-03-19] MEDS: PRENATAL VITAMINS W/ FOLIC ACID TABLET (FP) PO SCH (09:43)
[2022-03-19] MEDS: TRIAMCINOLONE ACET 0.1% CREAM 15 GM TUBE TP SCH (09:43)
[2022-03-19] MEDS: HYDROCHLOROTHIAZIDE 12.5 MG CAPSULE (FP) PO SCH (09:43)
[2022-03-19] MEDS: TOLNAFTATE 1% CREAM 15 GM TUBE TP SCH ×2 (09:44→21:34)
[2022-03-19] MEDS: MINERAL OIL/PETROLAT/WATER TOPICAL CREAM 454 GM JAR TP PRN (09:47)
[2022-03-19] MEDS: ATORVASTATIN CA 40 MG TABLET (FP) PO SCH (21:31)
[2022-03-19] MEDS: THIAMINE HCL 100 MG TABLET (FP) PO SCH (21:31)
[2022-03-19] MEDS: MELATONIN 5 MG TABLETS PO SCH (21:31)
[2022-03-19] MEDS: BACLOFEN 10 MG TABLET (FP) PO PRN (21:31)
[2022-03-20] MEDS: AMOX TR/POT CLAV 875MG/125MG TABLETS (FP) PO SCH ×2 (07:02→17:33)
[2022-03-20] MEDS: TAMSULOSIN HCL 0.4 MG CAP PO SCH (09:05)
[2022-03-20] MEDS: ALBUTEROL SO4 HFA INHALER IH PRN ×2 (10:19→21:58)
[2022-03-20] MEDS: CHOLECALCIFEROL (VIT D3) 1,000 UNIT (25 MCG) TABLET PO SCH (10:20)
[2022-03-20] MEDS: LISINOPRIL 10 MG TABLET PO SCH (10:20)
[2022-03-20] MEDS: HYDROCHLOROTHIAZIDE 12.5 MG CAPSULE (FP) PO SCH (10:20)
[2022-03-20] MEDS: PRENATAL VITAMINS W/ FOLIC ACID TABLET (FP) PO SCH (10:21)
[2022-03-20] MEDS: TOLNAFTATE 1% CREAM 15 GM TUBE TP SCH ×2 (10:21→22:17)
[2022-03-20] MEDS: TRIAMCINOLONE ACET 0.1% CREAM 15 GM TUBE TP SCH (10:21)
[2022-03-20] MEDS: BACLOFEN 10 MG TABLET (FP) PO PRN ×2 (10:22→21:57)
[2022-03-20] MEDS: MELATONIN 5 MG TABLETS PO SCH (21:57)
[2022-03-20] MEDS: ATORVASTATIN CA 40 MG TABLET (FP) PO SCH (21:57)
[2022-03-20] MEDS: hydrOXYzine PAMOATE 25 MG CAPSULE (FP) PO PRN (21:57)
[2022-03-20] MEDS: THIAMINE HCL 100 MG TABLET (FP) PO SCH (21:57)
[2022-03-21] MEDS: AMOX TR/POT CLAV 875MG/125MG TABLETS (FP) PO SCH ×2 (07:49→17:28)
[2022-03-21] MEDS: TAMSULOSIN HCL 0.4 MG CAP PO SCH (07:49)
[2022-03-21] MEDS: BACLOFEN 10 MG TABLET (FP) PO PRN ×2 (09:26→21:20)
[2022-03-21] MEDS: HYDROCHLOROTHIAZIDE 12.5 MG CAPSULE (FP) PO SCH (09:26)
[2022-03-21] MEDS: TRIAMCINOLONE ACET 0.1% CREAM 15 GM TUBE TP SCH (09:27)
[2022-03-21] MEDS: PRENATAL VITAMINS W/ FOLIC ACID TABLET (FP) PO SCH (09:27)
[2022-03-21] MEDS: LISINOPRIL 10 MG TABLET PO SCH (09:27)
[2022-03-21] MEDS: CHOLECALCIFEROL (VIT D3) 1,000 UNIT (25 MCG) TABLET PO SCH (09:27)
[2022-03-21] MEDS: TOLNAFTATE 1% CREAM 15 GM TUBE TP SCH ×2 (09:27→21:21)
[2022-03-21] MEDS: hydrOXYzine PAMOATE 25 MG CAPSULE (FP) PO PRN (21:20)
[2022-03-21] MEDS: THIAMINE HCL 100 MG TABLET (FP) PO SCH (21:20)
[2022-03-21] MEDS: MELATONIN 5 MG TABLETS PO SCH (21:20)
[2022-03-21] MEDS: ATORVASTATIN CA 40 MG TABLET (FP) PO SCH (21:20)
[2022-03-22] MEDS: AMOX TR/POT CLAV 875MG/125MG TABLETS (FP) PO SCH ×2 (07:01→17:07)
[2022-03-22] MEDS: TRIAMCINOLONE ACET 0.1% CREAM 15 GM TUBE TP SCH (09:29)
[2022-03-22] MEDS: TAMSULOSIN HCL 0.4 MG CAP PO SCH (09:29)
[2022-03-22] MEDS: PRENATAL VITAMINS W/ FOLIC ACID TABLET (FP) PO SCH (09:30)
[2022-03-22] MEDS: CHOLECALCIFEROL (VIT D3) 1,000 UNIT (25 MCG) TABLET PO SCH (09:31)
[2022-03-22] MEDS: TOLNAFTATE 1% CREAM 15 GM TUBE TP SCH ×2 (09:31→21:22)
[2022-03-22] MEDS: LISINOPRIL 10 MG TABLET PO SCH (09:32)
[2022-03-22] MEDS: HYDROCHLOROTHIAZIDE 12.5 MG CAPSULE (FP) PO SCH (09:32)
[2022-03-22] MEDS: IBUPROFEN 400 MG TABLET (FP) PO PRN (09:32)
[2022-03-22] MEDS: MELATONIN 5 MG TABLETS PO SCH (21:15)
[2022-03-22] MEDS: ATORVASTATIN CA 40 MG TABLET (FP) PO SCH (21:15)
[2022-03-22] MEDS: THIAMINE HCL 100 MG TABLET (FP) PO SCH (21:15)
[2022-03-22] MEDS: hydrOXYzine PAMOATE 25 MG CAPSULE (FP) PO PRN (21:15)
[2022-03-22] MEDS: BACLOFEN 10 MG TABLET (FP) PO PRN (21:15)
[2022-03-23] MEDS: ALBUTEROL SO4 HFA INHALER IH PRN (06:23)
[2022-03-23] MEDS: AMOX TR/POT CLAV 875MG/125MG TABLETS (FP) PO SCH ×2 (07:05→18:09)
[2022-03-23] MEDS: HYDROCHLOROTHIAZIDE 12.5 MG CAPSULE (FP) PO SCH (09:35)
[2022-03-23] MEDS: PRENATAL VITAMINS W/ FOLIC ACID TABLET (FP) PO SCH (09:36)
[2022-03-23] MEDS: LISINOPRIL 10 MG TABLET PO SCH (09:36)
[2022-03-23] MEDS: CHOLECALCIFEROL (VIT D3) 1,000 UNIT (25 MCG) TABLET PO SCH (09:36)
[2022-03-23] MEDS: BACLOFEN 10 MG TABLET (FP) PO PRN ×2 (09:42→21:13)
[2022-03-23] MEDS: TAMSULOSIN HCL 0.4 MG CAP PO SCH (10:24)
[2022-03-23] MEDS: TRIAMCINOLONE ACET 0.1% CREAM 15 GM TUBE TP SCH (10:24)
[2022-03-23] MEDS: TOLNAFTATE 1% CREAM 15 GM TUBE TP SCH ×2 (10:24→21:27)
[2022-03-23] MEDS: THIAMINE HCL 100 MG TABLET (FP) PO SCH (21:12)
[2022-03-23] MEDS: MELATONIN 5 MG TABLETS PO SCH (21:12)
[2022-03-23] MEDS: hydrOXYzine PAMOATE 25 MG CAPSULE (FP) PO PRN (21:13)
[2022-03-23] MEDS: ATORVASTATIN CA 40 MG TABLET (FP) PO SCH (21:13)
[2022-03-24] MEDS: AMOX TR/POT CLAV 875MG/125MG TABLETS (FP) PO SCH ×2 (07:03→17:21)
[2022-03-24] MEDS: TOLNAFTATE 1% CREAM 15 GM TUBE TP SCH ×2 (09:19→21:11)
[2022-03-24] MEDS: TRIAMCINOLONE ACET 0.1% CREAM 15 GM TUBE TP SCH (09:19)
[2022-03-24] MEDS: CHOLECALCIFEROL (VIT D3) 1,000 UNIT (25 MCG) TABLET PO SCH (09:19)
[2022-03-24] MEDS: PRENATAL VITAMINS W/ FOLIC ACID TABLET (FP) PO SCH (09:19)
[2022-03-24] MEDS: LISINOPRIL 10 MG TABLET PO SCH (09:19)
[2022-03-24] MEDS: HYDROCHLOROTHIAZIDE 12.5 MG CAPSULE (FP) PO SCH (09:19)
[2022-03-24] MEDS: TAMSULOSIN HCL 0.4 MG CAP PO SCH (09:19)
[2022-03-24] MEDS: BACLOFEN 10 MG TABLET (FP) PO PRN ×2 (11:27→21:10)
[2022-03-24] MEDS: THIAMINE HCL 100 MG TABLET (FP) PO SCH (21:09)
[2022-03-24] MEDS: MELATONIN 5 MG TABLETS PO SCH (21:09)
[2022-03-24] MEDS: ATORVASTATIN CA 40 MG TABLET (FP) PO SCH (21:10)
[2022-03-24] MEDS: hydrOXYzine PAMOATE 25 MG CAPSULE (FP) PO PRN (21:10)
[2022-03-25] MEDS: AMOX TR/POT CLAV 875MG/125MG TABLETS (FP) PO SCH ×2 (07:15→16:42)
[2022-03-25] MEDS: TRIAMCINOLONE ACET 0.1% CREAM 15 GM TUBE TP SCH (09:16)
[2022-03-25] MEDS: HYDROCHLOROTHIAZIDE 12.5 MG CAPSULE (FP) PO SCH (09:16)
[2022-03-25] MEDS: LISINOPRIL 10 MG TABLET PO SCH (09:16)
[2022-03-25] MEDS: TAMSULOSIN HCL 0.4 MG CAP PO SCH (09:16)
[2022-03-25] MEDS: PRENATAL VITAMINS W/ FOLIC ACID TABLET (FP) PO SCH (09:17)
[2022-03-25] MEDS: CHOLECALCIFEROL (VIT D3) 1,000 UNIT (25 MCG) TABLET PO SCH (09:17)
[2022-03-25] MEDS: TOLNAFTATE 1% CREAM 15 GM TUBE TP SCH ×2 (09:17→21:13)
[2022-03-25] MEDS: THIAMINE HCL 100 MG TABLET (FP) PO SCH (21:11)
[2022-03-25] MEDS: BACLOFEN 10 MG TABLET (FP) PO PRN (21:12)
[2022-03-25] MEDS: ATORVASTATIN CA 40 MG TABLET (FP) PO SCH (21:12)
[2022-03-25] MEDS: hydrOXYzine PAMOATE 25 MG CAPSULE (FP) PO PRN (21:12)
[2022-03-25] MEDS: SUVOREXANT 10 MG TABLET PO PRN (21:12)
[2022-03-26] MEDS: TAMSULOSIN HCL 0.4 MG CAP PO SCH (07:40)
[2022-03-26] MEDS: AMOX TR/POT CLAV 875MG/125MG TABLETS (FP) PO SCH ×2 (07:40→17:36)
[2022-03-26] MEDS: HYDROCHLOROTHIAZIDE 12.5 MG CAPSULE (FP) PO SCH (09:42)
[2022-03-26] MEDS: CHOLECALCIFEROL (VIT D3) 1,000 UNIT (25 MCG) TABLET PO SCH (09:42)
[2022-03-26] MEDS: LISINOPRIL 10 MG TABLET PO SCH (09:42)
[2022-03-26] MEDS: PRENATAL VITAMINS W/ FOLIC ACID TABLET (FP) PO SCH (09:42)
[2022-03-26] MEDS: TRIAMCINOLONE ACET 0.1% CREAM 15 GM TUBE TP SCH (09:43)
[2022-03-26] MEDS: TOLNAFTATE 1% CREAM 15 GM TUBE TP SCH ×2 (09:43→21:35)
[2022-03-26] MEDS: MAG HYDROX/AL HYDROX/SIMETH 30 ML UNIT-DOSE CUP PO PRN (09:44)
[2022-03-26] MEDS: hydrOXYzine PAMOATE 25 MG CAPSULE (FP) PO PRN (21:34)
[2022-03-26] MEDS: THIAMINE HCL 100 MG TABLET (FP) PO SCH (21:34)
[2022-03-26] MEDS: ATORVASTATIN CA 40 MG TABLET (FP) PO SCH (21:34)
[2022-03-26] MEDS: BACLOFEN 10 MG TABLET (FP) PO PRN (21:34)
[2022-03-26] MEDS: SUVOREXANT 10 MG TABLET PO PRN (21:35)
[2022-03-27] MEDS: AMOX TR/POT CLAV 875MG/125MG TABLETS (FP) PO SCH ×2 (07:34→16:42)
[2022-03-27] MEDS: TAMSULOSIN HCL 0.4 MG CAP PO SCH (10:05)
[2022-03-27] MEDS: CHOLECALCIFEROL (VIT D3) 1,000 UNIT (25 MCG) TABLET PO SCH (10:06)
[2022-03-27] MEDS: PRENATAL VITAMINS W/ FOLIC ACID TABLET (FP) PO SCH (10:06)
[2022-03-27] MEDS: HYDROCHLOROTHIAZIDE 12.5 MG CAPSULE (FP) PO SCH (10:06)
[2022-03-27] MEDS: LISINOPRIL 10 MG TABLET PO SCH (10:06)
[2022-03-27] MEDS: TOLNAFTATE 1% CREAM 15 GM TUBE TP SCH ×2 (10:07→21:33)
[2022-03-27] MEDS: TRIAMCINOLONE ACET 0.1% CREAM 15 GM TUBE TP SCH (10:09)
[2022-03-27] MEDS: BACLOFEN 10 MG TABLET (FP) PO PRN ×2 (11:40→21:22)
[2022-03-27] MEDS: THIAMINE HCL 100 MG TABLET (FP) PO SCH (21:21)
[2022-03-27] MEDS: SUVOREXANT 10 MG TABLET PO PRN (21:22)
[2022-03-27] MEDS: ATORVASTATIN CA 40 MG TABLET (FP) PO SCH (21:22)
[2022-03-28] MEDS: ALBUTEROL SO4 HFA INHALER IH PRN ×2 (02:26→10:30)
[2022-03-28] MEDS: AMOX TR/POT CLAV 875MG/125MG TABLETS (FP) PO SCH ×2 (07:07→17:50)
[2022-03-28] MEDS: HYDROCHLOROTHIAZIDE 12.5 MG CAPSULE (FP) PO SCH (09:54)
[2022-03-28] MEDS: TRIAMCINOLONE ACET 0.1% CREAM 15 GM TUBE TP SCH (09:54)
[2022-03-28] MEDS: TAMSULOSIN HCL 0.4 MG CAP PO SCH (09:54)
[2022-03-28] MEDS: PRENATAL VITAMINS W/ FOLIC ACID TABLET (FP) PO SCH (09:55)
[2022-03-28] MEDS: TOLNAFTATE 1% CREAM 15 GM TUBE TP SCH ×2 (09:55→21:11)
[2022-03-28] MEDS: BACLOFEN 10 MG TABLET (FP) PO PRN ×2 (09:55→21:10)
[2022-03-28] MEDS: LISINOPRIL 10 MG TABLET PO SCH (09:55)
[2022-03-28] MEDS: MINERAL OIL/PETROLAT/WATER TOPICAL CREAM 454 GM JAR TP PRN (09:56)
[2022-03-28] MEDS: CHOLECALCIFEROL (VIT D3) 1,000 UNIT (25 MCG) TABLET PO SCH (09:57)
[2022-03-28] MEDS: ATORVASTATIN CA 40 MG TABLET (FP) PO SCH (21:10)
[2022-03-28] MEDS: THIAMINE HCL 100 MG TABLET (FP) PO SCH (21:10)
[2022-03-28] MEDS: hydrOXYzine PAMOATE 25 MG CAPSULE (FP) PO PRN (21:10)
[2022-03-28] MEDS: SUVOREXANT 10 MG TABLET PO PRN (21:11)
[2022-03-28] MEDS ORDERED: SUVOREXANT 10 MG TABLET PO PRN (22:00)
[2022-03-29] MEDS: AMOX TR/POT CLAV 875MG/125MG TABLETS (FP) PO SCH ×2 (07:28→16:57)
[2022-03-29] MEDS: TAMSULOSIN HCL 0.4 MG CAP PO SCH (08:50)
[2022-03-29] MEDS: CHOLECALCIFEROL (VIT D3) 1,000 UNIT (25 MCG) TABLET PO SCH (10:11)
[2022-03-29] MEDS: HYDROCHLOROTHIAZIDE 12.5 MG CAPSULE (FP) PO SCH (10:11)
[2022-03-29] MEDS: LISINOPRIL 10 MG TABLET PO SCH (10:11)
[2022-03-29] MEDS: TOLNAFTATE 1% CREAM 15 GM TUBE TP SCH ×2 (10:11→21:39)
[2022-03-29] MEDS: TRIAMCINOLONE ACET 0.1% CREAM 15 GM TUBE TP SCH (10:11)
[2022-03-29] MEDS: PRENATAL VITAMINS W/ FOLIC ACID TABLET (FP) PO SCH (10:11)
[2022-03-29] MEDS: ALBUTEROL SO4 HFA INHALER IH PRN (10:12)
[2022-03-29] MEDS: THIAMINE HCL 100 MG TABLET (FP) PO SCH (21:38)
[2022-03-29] MEDS: BACLOFEN 10 MG TABLET (FP) PO PRN (21:39)
[2022-03-29] MEDS: ATORVASTATIN CA 40 MG TABLET (FP) PO SCH (21:39)
[2022-03-30] MEDS: AMOX TR/POT CLAV 875MG/125MG TABLETS (FP) PO SCH ×2 (07:18→17:03)
[2022-03-30] MEDS: TAMSULOSIN HCL 0.4 MG CAP PO SCH (08:55)
[2022-03-30] MEDS: CHOLECALCIFEROL (VIT D3) 1,000 UNIT (25 MCG) TABLET PO SCH (10:15)
[2022-03-30] MEDS: PRENATAL VITAMINS W/ FOLIC ACID TABLET (FP) PO SCH (10:15)
[2022-03-30] MEDS: LISINOPRIL 10 MG TABLET PO SCH (10:15)
[2022-03-30] MEDS: HYDROCHLOROTHIAZIDE 12.5 MG CAPSULE (FP) PO SCH (10:15)
[2022-03-30] MEDS: TOLNAFTATE 1% CREAM 15 GM TUBE TP SCH ×2 (10:16→22:31)
[2022-03-30] MEDS: TRIAMCINOLONE ACET 0.1% CREAM 15 GM TUBE TP SCH (10:16)
[2022-03-30] MEDS: BACLOFEN 10 MG TABLET (FP) PO PRN ×2 (10:17→22:00)
[2022-03-30] MEDS: COLLOIDAL OATMEAL 1 BAR EACH TP PRN (10:17)
[2022-03-30] MEDS: THIAMINE HCL 100 MG TABLET (FP) PO SCH (22:00)
[2022-03-30] MEDS: ATORVASTATIN CA 40 MG TABLET (FP) PO SCH (22:00)
[2022-03-30] MEDS: hydrOXYzine PAMOATE 25 MG CAPSULE (FP) PO PRN (22:00)
[2022-03-31] MEDS: TAMSULOSIN HCL 0.4 MG CAP PO SCH (09:48)
[2022-03-31] MEDS: TRIAMCINOLONE ACET 0.1% CREAM 15 GM TUBE TP SCH (09:48)
[2022-03-31] MEDS: TOLNAFTATE 1% CREAM 15 GM TUBE TP SCH ×2 (09:49→21:27)
[2022-03-31] MEDS: HYDROCHLOROTHIAZIDE 12.5 MG CAPSULE (FP) PO SCH (09:49)
[2022-03-31] MEDS: CHOLECALCIFEROL (VIT D3) 1,000 UNIT (25 MCG) TABLET PO SCH (09:49)
[2022-03-31] MEDS: LISINOPRIL 10 MG TABLET PO SCH (09:49)
[2022-03-31] MEDS: PRENATAL VITAMINS W/ FOLIC ACID TABLET (FP) PO SCH (09:49)
[2022-03-31] MEDS: MAG HYDROX/AL HYDROX/SIMETH 30 ML UNIT-DOSE CUP PO PRN (09:50)
[2022-03-31] MEDS: ALBUTEROL SO4 HFA INHALER IH PRN (09:50)
[2022-03-31] MEDS: ATORVASTATIN CA 40 MG TABLET (FP) PO SCH (21:27)
[2022-03-31] MEDS: BACLOFEN 10 MG TABLET (FP) PO PRN (21:27)
[2022-03-31] MEDS: THIAMINE HCL 100 MG TABLET (FP) PO SCH (21:27)
[2022-03-31] MEDS: hydrOXYzine PAMOATE 25 MG CAPSULE (FP) PO PRN (21:28)
[2022-03-31] MEDS ORDERED: SUVOREXANT 10 MG TABLET PO PRN (22:00)
[2022-04-01] MEDS: TAMSULOSIN HCL 0.4 MG CAP PO SCH (09:38)
[2022-04-01] MEDS: HYDROCHLOROTHIAZIDE 12.5 MG CAPSULE (FP) PO SCH (09:39)
[2022-04-01] MEDS: TRIAMCINOLONE ACET 0.1% CREAM 15 GM TUBE TP SCH (09:39)
[2022-04-01] MEDS: LISINOPRIL 10 MG TABLET PO SCH (09:40)
[2022-04-01] MEDS: TOLNAFTATE 1% CREAM 15 GM TUBE TP SCH ×2 (09:40→21:34)
[2022-04-01] MEDS: PRENATAL VITAMINS W/ FOLIC ACID TABLET (FP) PO SCH (09:40)
[2022-04-01] MEDS: CHOLECALCIFEROL (VIT D3) 1,000 UNIT (25 MCG) TABLET PO SCH (09:40)
[2022-04-01] MEDS: BACLOFEN 10 MG TABLET (FP) PO PRN ×2 (09:41→21:33)
[2022-04-01] MEDS: MAG HYDROX/AL HYDROX/SIMETH 30 ML UNIT-DOSE CUP PO PRN (14:40)
[2022-04-01] MEDS: ATORVASTATIN CA 40 MG TABLET (FP) PO SCH (21:33)
[2022-04-01] MEDS: THIAMINE HCL 100 MG TABLET (FP) PO SCH (21:33)
[2022-04-01] MEDS: hydrOXYzine PAMOATE 25 MG CAPSULE (FP) PO PRN (21:33)
[2022-04-02] MEDS: TAMSULOSIN HCL 0.4 MG CAP PO SCH (08:42)
[2022-04-02] MEDS: CHOLECALCIFEROL (VIT D3) 1,000 UNIT (25 MCG) TABLET PO SCH (09:42)
[2022-04-02] MEDS: PRENATAL VITAMINS W/ FOLIC ACID TABLET (FP) PO SCH (09:42)
[2022-04-02] MEDS: HYDROCHLOROTHIAZIDE 12.5 MG CAPSULE (FP) PO SCH (09:43)
[2022-04-02] MEDS: TRIAMCINOLONE ACET 0.1% CREAM 15 GM TUBE TP SCH (09:43)
[2022-04-02] MEDS: LISINOPRIL 10 MG TABLET PO SCH (09:43)
[2022-04-02] MEDS: TOLNAFTATE 1% CREAM 15 GM TUBE TP SCH ×2 (09:43→21:40)
[2022-04-02] MEDS: THIAMINE HCL 100 MG TABLET (FP) PO SCH (21:39)
[2022-04-02] MEDS: BACLOFEN 10 MG TABLET (FP) PO PRN (21:39)
[2022-04-02] MEDS: ATORVASTATIN CA 40 MG TABLET (FP) PO SCH (21:39)
[2022-04-03] MEDS: TAMSULOSIN HCL 0.4 MG CAP PO SCH (08:50)
[2022-04-03] MEDS: PRENATAL VITAMINS W/ FOLIC ACID TABLET (FP) PO SCH (10:13)
[2022-04-03] MEDS: CHOLECALCIFEROL (VIT D3) 1,000 UNIT (25 MCG) TABLET PO SCH (10:13)
[2022-04-03] MEDS: LISINOPRIL 10 MG TABLET PO SCH (10:13)
[2022-04-03] MEDS: HYDROCHLOROTHIAZIDE 12.5 MG CAPSULE (FP) PO SCH (10:13)
[2022-04-03] MEDS: TRIAMCINOLONE ACET 0.1% CREAM 15 GM TUBE TP SCH (10:15)
[2022-04-03] MEDS: TOLNAFTATE 1% CREAM 15 GM TUBE TP SCH ×2 (10:15→22:31)
[2022-04-03] MEDS: COLLOIDAL OATMEAL 1 BAR EACH TP PRN (15:39)
[2022-04-03] MEDS: BACLOFEN 10 MG TABLET (FP) PO PRN (21:49)
[2022-04-03] MEDS: THIAMINE HCL 100 MG TABLET (FP) PO SCH (21:49)
[2022-04-03] MEDS: hydrOXYzine PAMOATE 25 MG CAPSULE (FP) PO PRN (21:49)
[2022-04-03] MEDS: ATORVASTATIN CA 40 MG TABLET (FP) PO SCH (21:49)
[2022-04-03] MEDS: SUVOREXANT 10 MG TABLET PO PRN (21:52)
[2022-04-04] MEDS: IBUPROFEN 400 MG TABLET (FP) PO PRN (02:35)
[2022-04-04] MEDS: TAMSULOSIN HCL 0.4 MG CAP PO SCH (08:45)
[2022-04-04] MEDS: CHOLECALCIFEROL (VIT D3) 1,000 UNIT (25 MCG) TABLET PO SCH (09:41)
[2022-04-04] MEDS: LISINOPRIL 10 MG TABLET PO SCH (09:41)
[2022-04-04] MEDS: PRENATAL VITAMINS W/ FOLIC ACID TABLET (FP) PO SCH (09:41)
[2022-04-04] MEDS: HYDROCHLOROTHIAZIDE 12.5 MG CAPSULE (FP) PO SCH (09:41)
[2022-04-04] MEDS: TOLNAFTATE 1% CREAM 15 GM TUBE TP SCH ×2 (09:42→21:46)
[2022-04-04] MEDS: TRIAMCINOLONE ACET 0.1% CREAM 15 GM TUBE TP SCH (09:42)
[2022-04-04] MEDS: ALBUTEROL SO4 HFA INHALER IH PRN (09:42)
[2022-04-04] MEDS: BACLOFEN 10 MG TABLET (FP) PO PRN (21:46)
[2022-04-04] MEDS: hydrOXYzine PAMOATE 25 MG CAPSULE (FP) PO PRN (21:46)
[2022-04-04] MEDS: THIAMINE HCL 100 MG TABLET (FP) PO SCH (21:46)
[2022-04-04] MEDS: ATORVASTATIN CA 40 MG TABLET (FP) PO SCH (21:46)
[2022-04-04] MEDS: SUVOREXANT 10 MG TABLET PO PRN (21:47)
[2022-04-05] MEDS: PRENATAL VITAMINS W/ FOLIC ACID TABLET (FP) PO SCH (10:43)
[2022-04-05] MEDS: LISINOPRIL 10 MG TABLET PO SCH (10:43)
[2022-04-05] MEDS: HYDROCHLOROTHIAZIDE 12.5 MG CAPSULE (FP) PO SCH (10:43)
[2022-04-05] MEDS: TOLNAFTATE 1% CREAM 15 GM TUBE TP SCH ×2 (10:45→21:32)
[2022-04-05] MEDS: CHOLECALCIFEROL (VIT D3) 1,000 UNIT (25 MCG) TABLET PO SCH (10:45)
[2022-04-05] MEDS: TRIAMCINOLONE ACET 0.1% CREAM 15 GM TUBE TP SCH (10:45)
[2022-04-05] MEDS: TAMSULOSIN HCL 0.4 MG CAP PO SCH (10:45)
[2022-04-05] MEDS: NICOTINE 10 MG CARTRIDGE (INHALER) IH PRN ×2 (10:47→21:31)
[2022-04-05] MEDS: hydrOXYzine PAMOATE 25 MG CAPSULE (FP) PO PRN (21:31)
[2022-04-05] MEDS: SUVOREXANT 10 MG TABLET PO PRN (21:31)
[2022-04-05] MEDS: ATORVASTATIN CA 40 MG TABLET (FP) PO SCH (21:32)
[2022-04-05] MEDS: BACLOFEN 10 MG TABLET (FP) PO PRN (21:32)
[2022-04-05] MEDS: THIAMINE HCL 100 MG TABLET (FP) PO SCH (21:32)
[2022-04-06 06:41] VITALS: BP 138/85; PULSE 74; RESP 16; TEMP 98.1
[2022-04-06] MEDS: TAMSULOSIN HCL 0.4 MG CAP PO SCH (09:09)
[2022-04-06] MEDS: LISINOPRIL 10 MG TABLET PO SCH (09:09)
[2022-04-06] MEDS: HYDROCHLOROTHIAZIDE 12.5 MG CAPSULE (FP) PO SCH (09:09)
[2022-04-06] MEDS: CHOLECALCIFEROL (VIT D3) 1,000 UNIT (25 MCG) TABLET PO SCH (09:09)
[2022-04-06] MEDS: PRENATAL VITAMINS W/ FOLIC ACID TABLET (FP) PO SCH (09:09)
[2022-04-06] MEDS: TOLNAFTATE 1% CREAM 15 GM TUBE TP SCH (09:10)
[2022-04-06] MEDS: TRIAMCINOLONE ACET 0.1% CREAM 15 GM TUBE TP SCH (09:10)
== END 2022-04-06 09:18 | disposition home or self-care (01) | DRG 772 ==
LOC: YASAS 13:55 → Y3E 13:56
PROVIDERS: ADMIT Allergy & Immunology; ATTEND Psychiatry & Neurology Pain Medicine
PROC: HZ42ZZZ Group Counseling for Substance Abuse Treatment, Cognitive-Behavioral (ICD-10-PCS; principal; 2022-03-15)
DX: F10.20 Alcohol dependence, uncomplicated (principal); F14.20 Cocaine dependence, uncomplicated; F12.20 Cannabis dependence, uncomplicated; F17.210 Nicotine dependence, cigarettes, uncomplicated; E55.9 Vitamin D deficiency, unspecified; E78.5 Hyperlipidemia, unspecified; I10 Essential (primary) hypertension; J45.909 Unspecified asthma, uncomplicated; J39.2 Other diseases of pharynx; L30.9 Dermatitis, unspecified; R59.0 Localized enlarged lymph nodes; M62.838 Other muscle spasm; N40.0 Benign prostatic hyperplasia without lower urinary tract symptoms; R73.9 Hyperglycemia, unspecified
CPT/HCPCS: 36415; 82306; 82962; 83036; 83735; 86803; J0475

== ENCOUNTER 2022-09-13 13:07 | Inpatient (IN) | payer OTHER ==
[2022-09-13 14:04] VITALS: BMI 27.7
[2022-09-13] MEDS ORDERED: POLYETHYLENE GLYCOL (HEALTHYLAX) 3350 17 GM PACKET PO PRN (17:35)
[2022-09-13] MEDS ORDERED: LOPERAMIDE HCL 2 MG CAPSULE PO PRN (17:35)
[2022-09-13] MEDS ORDERED: IBUPROFEN 400 MG TABLET (FP) PO PRN (17:35)
[2022-09-13] MEDS ORDERED: ONDANSETRON *ODT* 4 MG TABLET SL PRN (17:35)
[2022-09-13] MEDS ORDERED: BENZOCAINE/MENTHOL (CHLORASEPTIC ) LOZENGE MM PRN (17:35)
[2022-09-13] MEDS ORDERED: NALOXONE HCL 0.4 MG/ML VIAL IM PRN (17:35)
[2022-09-13] MEDS ORDERED: DICYCLOMINE HCL 10 MG CAPSULE PO PRN (17:35)
[2022-09-13] MEDS ORDERED: BISMUTH SUBSALICYLATE 524 MG/30 ML PO PRN (17:35)
[2022-09-13] MEDS ORDERED: hydrOXYzine PAMOATE 25 MG CAPSULE (FP) PO PRN (17:35)
[2022-09-13] MEDS ORDERED: IBUPROFEN 600 MG TABLET (FP) PO PRN (17:35)
[2022-09-13] MEDS ORDERED: NALOXONE HCL (KLOXXADO) 8 MG SPRAY NS PRN (17:35)
[2022-09-13] MEDS ORDERED: MAG HYDROX/AL HYDROX/SIMETH 30 ML UNIT-DOSE CUP PO PRN (17:35)
[2022-09-13] MEDS ORDERED: MAGNESIUM HYDROX 2400MG/30ML ORAL SUSPENSION 30 ML CUP PO PRN (17:35)
[2022-09-13] MEDS ORDERED: guaiFENesin 600 MG TABLET.ER (FP) PO PRN (17:35)
[2022-09-13] MEDS ORDERED: BENZONATATE 200 MG CAPSULE PO PRN (17:35)
[2022-09-13] MEDS ORDERED: chlordiazePOXIDE HCL 25 MG CAPSULE PO PRN (17:38)
[2022-09-13] MEDS ORDERED: chlordiazePOXIDE HCL 25 MG CAPSULE PO ONE (17:38)
[2022-09-13] MEDS ORDERED: ALBUTEROL SO4 2.5/IPRATROPIUM 0.5 INH SOL 3 ML VIAL.NEB. NEB ONE ×2 (17:39→17:54)
[2022-09-13] MEDS ORDERED: chlordiazePOXIDE HCL 25 MG CAPSULE ONE (17:54)
[2022-09-13] MEDS: chlordiazePOXIDE HCL 25 MG CAPSULE PO SCH (22:08)
[2022-09-13] MEDS: MELATONIN 5 MG TABLETS PO SCH (22:08)
[2022-09-13] MEDS: ATORVASTATIN CA 40 MG TABLET (FP) PO SCH (22:09)
[2022-09-13] MEDS: TAMSULOSIN HCL 0.4 MG CAP PO SCH (22:09)
[2022-09-13] MEDS: THIAMINE HCL 100 MG TABLET (FP) PO SCH (22:09)
[2022-09-13] MEDS: TRIAMCINOLONE ACET 0.1% CREAM 15 GM TUBE TP SCH (22:53)
[2022-09-14] MEDS: chlordiazePOXIDE HCL 25 MG CAPSULE PO SCH ×4 (05:14→22:24)
[2022-09-14] MEDS: TRIAMCINOLONE ACET 0.1% CREAM 15 GM TUBE TP SCH ×3 (05:15→22:22)
[2022-09-14] MEDS ORDERED: TAMSULOSIN HCL 0.4 MG CAP PO SCH (10:00)
[2022-09-14] MEDS: PRENATAL VITAMINS W/ FOLIC ACID TABLET (FP) PO SCH (10:15)
[2022-09-14] MEDS: LISINOPRIL 10 MG TABLET PO SCH (10:16)
[2022-09-14] MEDS: HYDROCHLOROTHIAZIDE 12.5 MG CAPSULE (FP) PO SCH (10:16)
[2022-09-14] MEDS ORDERED: COLLOIDAL OATMEAL 1 BAR EACH TP PRN (11:05)
[2022-09-14 11:20] LABS: HEMATOCRIT 42.3 % (35.4-49); HEMOGLOBIN 13.7 GM/dL (11.7-16.9); MCH 27.5 pg (25.7-33.7); MCHC 32.5 g/dl (32.0-35.9); MEAN CELL VOLUME 84.6 fl (80-96); MEAN PLT VOLUME 9.1 fl (7.5-11.1); PLATELET COUNT 224 10^3/uL (134-434); RDW 14.3 % (11.9-15.9); WHITE BLOOD COUNT 4.9 K/mm3 (4.0-10.0)
[2022-09-14 11:28] LABS: POTASSIUM 3.4 mmol/L (3.5-5.1)
[2022-09-14 11:40] LABS: CALCIUM 8.3 mg/dL (8.5-10.1)
[2022-09-14 11:41] LABS: ALBUMIN 3.1 g/dl (3.4-5.0); BLOOD UREA NITROGEN 7.8 mg/dL (7-18)
[2022-09-14 11:44] LABS: CREATININE 0.7 mg/dL (0.55-1.3)
[2022-09-14 11:45] LABS: BILIRUBIN,TOTAL 0.3 mg/dL (0.2-1); TOT PROT 5.8 g/dl (6.4-8.2)
[2022-09-14] MEDS: ALBUTEROL SO4 HFA INHALER IH PRN (22:21)
[2022-09-14] MEDS: MELATONIN 5 MG TABLETS PO SCH (22:23)
[2022-09-14] MEDS: TAMSULOSIN HCL 0.4 MG CAP PO SCH (22:23)
[2022-09-14] MEDS: ATORVASTATIN CA 40 MG TABLET (FP) PO SCH (22:23)
[2022-09-14] MEDS: METHOCARBAMOL 500 MG TABLET PO PRN (22:23)
[2022-09-14] MEDS: THIAMINE HCL 100 MG TABLET (FP) PO SCH (22:24)
[2022-09-14] MEDS: ACETAMINOPHEN 325 MG TABLET (FP) PO PRN (22:24)
[2022-09-15] MEDS: TRIAMCINOLONE ACET 0.1% CREAM 15 GM TUBE TP SCH ×3 (05:10→22:31)
[2022-09-15] MEDS: chlordiazePOXIDE HCL 25 MG CAPSULE PO SCH ×4 (05:10→22:35)
[2022-09-15] MEDS: LISINOPRIL 10 MG TABLET PO SCH (10:13)
[2022-09-15] MEDS: HYDROCHLOROTHIAZIDE 12.5 MG CAPSULE (FP) PO SCH (10:13)
[2022-09-15] MEDS: PRENATAL VITAMINS W/ FOLIC ACID TABLET (FP) PO SCH (10:14)
[2022-09-15] MEDS ORDERED: POTASSIUM CHLORIDE ORAL LIQUID 20 MEQ/15 ML PO ONE (11:40)
[2022-09-15] MEDS: ACETAMINOPHEN 325 MG TABLET (FP) PO PRN (17:26)
[2022-09-15] MEDS: THIAMINE HCL 100 MG TABLET (FP) PO SCH (22:34)
[2022-09-15] MEDS: MELATONIN 5 MG TABLETS PO SCH (22:34)
[2022-09-15] MEDS: ATORVASTATIN CA 40 MG TABLET (FP) PO SCH (22:34)
[2022-09-15] MEDS: POTASSIUM CHLORIDE ORAL LIQUID 20 MEQ/15 ML PO SCH (22:34)
[2022-09-15] MEDS: METHOCARBAMOL 500 MG TABLET PO PRN (22:34)
[2022-09-15] MEDS: TAMSULOSIN HCL 0.4 MG CAP PO SCH (22:35)
[2022-09-16] MEDS ORDERED: chlordiazePOXIDE HCL 10 MG CAPSULE PO PRN
[2022-09-16] MEDS: TRIAMCINOLONE ACET 0.1% CREAM 15 GM TUBE TP SCH (05:30)
[2022-09-16] MEDS: chlordiazePOXIDE HCL 10 MG CAPSULE PO SCH ×2 (05:31→10:22)
[2022-09-16 06:15] VITALS: RESP 16
[2022-09-16 09:25] VITALS: BP 158/94; PULSE 86; TEMP 97.8
[2022-09-16] MEDS: HYDROCHLOROTHIAZIDE 12.5 MG CAPSULE (FP) PO SCH (10:20)
[2022-09-16] MEDS: PRENATAL VITAMINS W/ FOLIC ACID TABLET (FP) PO SCH (10:20)
[2022-09-16] MEDS: POTASSIUM CHLORIDE ORAL LIQUID 20 MEQ/15 ML PO SCH (10:20)
[2022-09-16] MEDS: LISINOPRIL 10 MG TABLET PO SCH (10:20)
[2022-09-16] MEDS: ALBUTEROL SO4 HFA INHALER IH PRN (10:22)
[2022-09-17] MEDS ORDERED: chlordiazePOXIDE HCL 10 MG CAPSULE PO SCH (05:00)
[2022-09-18] MEDS ORDERED: chlordiazePOXIDE HCL 10 MG CAPSULE PO ONE (05:00)
== END 2022-09-16 10:42 | disposition home or self-care (01) | DRG 774 ==
LOC: YASAS 13:07 → Y3N 17:53
PROVIDERS: ADMIT Allergy & Immunology; ATTEND Surgery
PROC: HZ2ZZZZ Detoxification Services for Substance Abuse Treatment (ICD-10-PCS; principal; 2022-09-13)
DX: F10.230 Alcohol dependence with withdrawal, uncomplicated (principal); F14.20 Cocaine dependence, uncomplicated; F12.20 Cannabis dependence, uncomplicated; F31.9 Bipolar disorder, unspecified; G47.00 Insomnia, unspecified; E78.5 Hyperlipidemia, unspecified; I10 Essential (primary) hypertension; J45.909 Unspecified asthma, uncomplicated; L30.9 Dermatitis, unspecified; Z59.00 Homelessness unspecified; Z56.0 Unemployment, unspecified
CPT/HCPCS: 36415; 80053; 84132; 85027; 86780; 87635; 94640; Q0162

== ENCOUNTER 2023-10-25 17:30 | Inpatient (IN) | payer OTHER ==
[2023-10-25 20:01] VITALS: BMI 25.8
[2023-10-25] MEDS ORDERED: P-EPHED 60MG/TRIPROLIDI 2.5MG TABLET PO PRN (20:55)
[2023-10-25] MEDS ORDERED: NICOTINE POLACRILEX 2 MG GUM BUC PRN (20:55)
[2023-10-25] MEDS ORDERED: IBUPROFEN 600 MG TABLET (FP) PO PRN (20:55)
[2023-10-25] MEDS ORDERED: NICOTINE POLACRILEX 2 MG LOZENGE BC PRN (20:55)
[2023-10-25] MEDS ORDERED: DICYCLOMINE HCL 10 MG CAPSULE PO PRN (20:55)
[2023-10-25] MEDS ORDERED: IBUPROFEN 400 MG TABLET (FP) PO PRN (20:55)
[2023-10-25] MEDS ORDERED: BISMUTH SUBSALICYLATE 524 MG/30 ML PO PRN (20:55)
[2023-10-25] MEDS ORDERED: MAGNESIUM HYDROX 2400MG/30ML ORAL SUSPENSION 30 ML CUP PO PRN (20:55)
[2023-10-25] MEDS ORDERED: LOPERAMIDE HCL 2 MG CAPSULE PO PRN (20:55)
[2023-10-25] MEDS ORDERED: POLYETHYLENE GLYCOL (HEALTHYLAX) 3350 17 GM PACKET PO PRN (20:55)
[2023-10-25] MEDS ORDERED: guaiFENesin 600 MG TABLET.ER (FP) PO PRN (20:55)
[2023-10-25] MEDS ORDERED: BENZONATATE 200 MG CAPSULE PO PRN (20:55)
[2023-10-25] MEDS ORDERED: BENZOCAINE/MENTHOL (CHLORASEPTIC ) LOZENGE MM PRN (20:55)
[2023-10-25] MEDS ORDERED: ALBUTEROL SO4 0.083% IH SOL 2.5 MG/3 ML VIAL.NEB. NEB ONE (21:00)
[2023-10-25] MEDS: ALBUTEROL SO4 2.5/IPRATROPIUM 0.5 INH SOL 3 ML VIAL.NEB. NEB ONE (21:36)
[2023-10-25] MEDS: ATORVASTATIN CA 40 MG TABLET (FP) PO SCH (22:35)
[2023-10-25] MEDS: hydrOXYzine PAMOATE 25 MG CAPSULE (FP) PO PRN (22:35)
[2023-10-25] MEDS: THIAMINE 100 MG TABLET PO SCH (22:35)
[2023-10-25] MEDS: MELATONIN 5 MG TABLETS PO SCH (22:35)
[2023-10-25] MEDS: METHOCARBAMOL 500 MG TABLET PO PRN (22:35)
[2023-10-25] MEDS: TRIAMCINOLONE ACET 0.1% CREAM 15 GM TUBE TP SCH (23:35)
[2023-10-26] MEDS ORDERED: chlordiazePOXIDE HCL 25 MG CAPSULE PO PRN (09:10)
[2023-10-26] MEDS: TAMSULOSIN HCL 0.4 MG CAP PO SCH (09:25)
[2023-10-26] MEDS: FLUTICASONE/SALMETEROL (WIXELA) 100 MCG/50 MCG DISKUS IH SCH (10:33)
[2023-10-26] MEDS: CHOLECALCIFEROL (VIT D3) 1,000 UNIT (25 MCG) TABLET PO SCH (10:34)
[2023-10-26] MEDS: LISINOPRIL 10 MG TABLET PO SCH (10:34)
[2023-10-26] MEDS: PRENATAL VITAMINS W/ FOLIC ACID TABLET (FP) PO SCH (10:34)
[2023-10-26] MEDS: HYDROCHLOROTHIAZIDE 12.5 MG CAPSULE (FP) PO SCH (10:34)
[2023-10-26] MEDS: FENOFIBRIC ACID 45 MG CAP PO SCH (10:35)
[2023-10-26] MEDS: chlordiazePOXIDE HCL 25 MG CAPSULE PO SCH (10:35)
[2023-10-26] MEDS: amLODIPine BESYLATE 5 MG TABLET (FP) PO SCH (10:35)
[2023-10-26] MEDS: cloNIDine HCL 0.1 MG TABLET PO SCH (10:37)
[2023-10-26 12:43] LABS: HEMATOCRIT 42.4 % (35.4-49); MCH 29.4 pg (25.7-33.7); MEAN CELL VOLUME 89.2 fl (80-96); MEAN PLT VOLUME 8.8 fl (7.5-11.1); PLATELET COUNT 272 10^3/uL (134-434); RBC 4.76 M/mm3 (4.00-5.60); RDW 14.6 % (11.9-15.9); WHITE BLOOD COUNT 5.2 K/mm3 (4.0-10.0)
[2023-10-26 12:58] LABS: CHLORIDE 109 mmol/L (98-107); POTASSIUM 3.8 mmol/L (3.5-5.1); SODIUM 142 mmol/L (136-145)
[2023-10-26 13:04] LABS: ALBUMIN 3.1 g/dl (3.4-5.0); ANION GAP 9 mmol/L (4-13); BLOOD UREA NITROGEN 13.1 mg/dL (7-18); CALCIUM 8.8 mg/dL (8.5-10.1); CO2 25 mmol/L (21-32); GLUCOSE,RANDOM 112 mg/dL (74-106)
[2023-10-26 13:07] LABS: BILIRUBIN,TOTAL 0.9 mg/dL (0.2-1); CREATININE 0.7 mg/dL (0.55-1.3); SGOT/AST 21 U/L (15-37); SGPT/ALT 32 U/L (13-61); TOT PROT 5.8 g/dl (6.4-8.2)
[2023-10-26 13:09] LABS: ALK PHOS 69 U/L (45-117)
[2023-10-26] MEDS ORDERED: cloNIDine HCL 0.1 MG TABLET PO PRN (13:12)
[2023-10-26] MEDS: ACETAMINOPHEN 325 MG TABLET (FP) PO PRN (17:15)
[2023-10-26] MEDS: DIVALPROEX SODIUM 250 MG TABLET E.C. PO SCH (22:28)
[2023-10-27] MEDS: ARIPiprazole 5 MG TABLET PO SCH (10:15)
[2023-10-27] MEDS: DEXTROAMPHETAMINE/AMPHETAMINE 20 MG CAP.ER.24H PO SCH (10:45)
[2023-10-27] MEDS: cloNIDine HCL 0.1 MG TABLET PO PRN (11:10)
[2023-10-27] MEDS: HYDROCHLOROTHIAZIDE 12.5 MG CAPSULE (FP) PO SCH (11:11)
[2023-10-28] MEDS: chlordiazePOXIDE HCL 25 MG CAPSULE PO SCH (05:59)
[2023-10-28] MEDS: ONDANSETRON *ODT* 4 MG TABLET SL PRN (17:30)
[2023-10-29] MEDS ORDERED: chlordiazePOXIDE HCL 10 MG CAPSULE PO PRN
[2023-10-29] MEDS: chlordiazePOXIDE HCL 10 MG CAPSULE PO SCH (05:45)
[2023-10-29] MEDS: ALBUTEROL SO4 HFA INHALER IH PRN (08:41)
[2023-10-29] MEDS: MINERAL OIL/PET HY-PHL TOPICAL OINTMENT 454 GM JAR TP SCH (12:25)
[2023-10-29] MEDS: MAG HYDROX/AL HYDROX/SIMETH 30 ML UNIT-DOSE CUP PO PRN (22:51)
[2023-10-30] MEDS: chlordiazePOXIDE HCL 10 MG CAPSULE PO SCH (05:25)
[2023-10-30 17:07] VITALS: RESP 18
[2023-10-30 21:16] VITALS: TEMP 97.7
[2023-10-31] MEDS: chlordiazePOXIDE HCL 10 MG CAPSULE PO ONE (05:55)
[2023-10-31 06:19] VITALS: BP 129/78; PULSE 90
[2023-10-31] MEDS: TRIAMCINOLONE ACET 0.1% OINT 15 GM TUBE TP SCH (09:31)
== END 2023-10-31 09:31 | disposition home or self-care (01) | DRG 774 ==
LOC: YASAS 17:30 → Y3N 21:35
PROVIDERS: ADMIT Allergy & Immunology; ATTEND Surgery
PROC: HZ2ZZZZ Detoxification Services for Substance Abuse Treatment (ICD-10-PCS; principal; 2023-10-25)
DX: F10.230 Alcohol dependence with withdrawal, uncomplicated (principal); F14.20 Cocaine dependence, uncomplicated; F12.20 Cannabis dependence, uncomplicated; F17.210 Nicotine dependence, cigarettes, uncomplicated; F31.9 Bipolar disorder, unspecified; F19.24 Other psychoactive substance dependence with psychoactive substance-induced mood disorder; E78.5 Hyperlipidemia, unspecified; G47.00 Insomnia, unspecified; I10 Essential (primary) hypertension; J45.909 Unspecified asthma, uncomplicated; N40.0 Benign prostatic hyperplasia without lower urinary tract symptoms; Z59.02 Unsheltered homelessness
CPT/HCPCS: 36415; 80053; 80164; 80305; 80307; 85027; 86780; 93005; 93010; 94640; Q0162